=== PATIENT | male | born 1965 | race Caucasian/White ===

== ENCOUNTER 2019-02-08 10:21 | Day surgery (SDC) | payer OTHER ==
--- NOTE | 2019-02-08 10:07 | EKG ---
Test Date: 2019-02-08 Test Time: 10:01:14 Educational Aide: BRI MEASUREMENT RESULTS: Intervals: Rate: 57 MT: 158 QRSD: 100 QT: 454 QTc: 441 [place]: P: 39 MT: 158 QRS: 59 T: 49 INTERPRETIVE STATEMENTS: Sinus bradycardia Otherwise normal ECG No previous ECG available for comparison Electronically Signed On 02-08-19 10:06:55 CDT by Kyle Alcantara
--- NOTE | 2019-02-08 10:25 | RAD REPORT ---
EXAM DESCRIPTION: RAD - Chest Pa And Lat (2 Views) - 02/08/2019 10:20 am CLINICAL HISTORY: preop Chest pain. COMPARISON: No comparisons FINDINGS: The lungs are clear. The heart is normal in size. No displaced fractures. IMPRESSION: No acute or concerning finding suspected.
--- OUTSIDE RECORDS SUMMARY | 2019-02-08 10:28 | XMS REPORT | Summary of Care ---
:1965 Author Organization [facility] Address [address] [place] [id number] Care Team Providers Name Role Phone Mairanela Blanco Primary Care Provider Reason for Visit Radiology Services (Routine) Status Reason Specialty Diagnoses / Referred By Referred To Procedures Contact Contact Closed Diagnostic Diagnoses Abdominal pain, right upper quadrant Gonzalo Koch, Radiology Procedures NM HEPATOBILIARY W INTERVENTION [address] [place] [facility] [address] [place] [address] Encounter Details Date Type Department Care Team Description 02/01/2019 Hospital Encounter [facility] Gonzalo Smith, Birgit Basilio Nuclear Medicine [address] [place] [address] [place] [address] [facility] [address] [place] [address] Allergies Active Allergy Reactions Severity Noted Date Comments Iodine And Iodide Containing Hives, Shortness of Breath 02/01/2019 Products documented as of this encounter (statuses as of 02/02/2019) Medications Not on filedocumented as of this encounter (statuses as of 02/02/2019) Active Problems Not on filedocumented as of this encounter (statuses as of 02/02/2019) Social History Tobacco Use Types Packs/Day Years Used Date Never Assessed Sex Assigned at Date Recorded Not on file Job Start Date Occupation Industry Not on file Not on file Not on file Travel History Travel Start Travel End No recent travel history available. documented as of this encounter Last Filed Vital Signs Not on filedocumented in this encounter Plan of Treatment Health Maintenance Due Date Last Done Comments DTaP,Tdap,and Td Vaccines (1 - 1985 Tdap) COLONOSCOPY 2016 Zoster Recombinant Vaccine 2016 (SHINGRIX) (1 of 2) INFLUENZA VACCINE (#1) 2019 PNEUMOCOCCAL 0-64 YEARS COMBINED Aged Out No longer eligible based on SERIES patient's age to complete this topic documented as of this encounter Procedures Procedure Name Priority Date/Time Associated Comments Diagnosis NM HEPATOBILIARY W Routine 02/01/2019 10:38 Abdominal pain, Results for this INTERVENTION AM CDT right upper procedure are in quadrant the results section. AGREEMENTS Routine 02/01/2019 12:01 AUTHORIZATIONS AND AM CDT IRREVOCABLE ASSIGNMENTS (FORM 2001) NOTICE OF PRIVACY Routine 02/01/2019 12:01 PRACTICES AM CDT documented in this encounter Results Not on filedocumented in this encounter Insurance Payer Benefit Plan / Subscriber ID Effective Dates Phone Address Type Group MEDICARE MEDICARE PART xxxxxxxxxxx 2006-Elo [phone] [facility] Medicare A & B t 2 [id number] SWAPNA PEGUERO [id number] documented as of this encounter
--- OUTSIDE RECORDS SUMMARY | 2019-02-08 10:29 | XMS REPORT | Summary of Care ---
:1965 Author Organization [facility] Address [address] [place] [address] Care Team Providers Name Role Phone Marianela Blanco Primary Care Provider Reason for Referral Radiology Services (Routine) Status Reason Specialty Diagnoses / Referred By Referred To Procedures Contact Contact Closed Diagnostic Diagnoses Abdominal pain, right upper quadrant Gonzalo Koch, Radiology Procedures NM HEPATOBILIARY Sammi GOMEZ MD [address] [place] [address] Radiology Services (Routine) Status Reason Specialty Diagnoses / Referred By Referred To Procedures Contact Contact Closed Diagnostic Diagnoses Abdominal pain, right upper quadrant Gonzalo Koch, Radiology Procedures NM HEPATOBILIARY Sammi GOMEZ MD [address] [place] [address] Reason for Visit Radiology Services (Routine) Status Reason Specialty Diagnoses / Referred By Referred To Procedures Contact Contact Closed Diagnostic Diagnoses Abdominal pain, right upper quadrant Gonzalo Koch, Radiology Procedures NM HEPATOBILIARY Sammi GOMEZ MD [address] [place] [address] Encounter Details Date Type Department Care Team Description 02/01/2019 Hospital Encounter [facility] Gonzalo Smith Arrived [place] [facility] [address] [facility] [address] [place] [address] [facility] [address] [place] [address] Allergies Not on filedocumented as of this encounter [...] procedure are in quadrant the results section. documented in this encounter Results NM HEPATOBILIARY W INTERVENTION (02/01/2019 10:38 AM CDT) Specimen Narrative Performed At HISTORY: Abdominal/right upper quadrant pain. PACS/VR/DOSE TECHNIQUE: Routine hepatobiliary scan is obtained with 9.6 mCi of technetium 99m mebrofenin. CCK study is completed with slow intravenous injection of 1.7 mcg of CCK. FINDINGS: Flow images and planar images of the liver appear normal. Bile ducts begin to visualize within 10 minutes, duodenum within 80 minutes. Gallbladder begins to visualize at approximately 12 minutes. Gallbladder contraction is normal with CCK stimulation and GB EF is 88 %. Patient complained of duplication of clinical symptoms during CCK study. CONCLUSIONS: 1.Delayed biliary to bowel transit time noted with duodenum not visualized until 8 to 10 minutes into the CCK drip infusion. 2.GBEF with CCK stimulation is hyper contraction, 88%. 3.Patient indicated duplication of clinical symptoms during CCK infusion and C/O nausea, right upper quadrant pain. Procedure Note [facility], Radiant Results Inft User - 02/01/2019 11:02 AM CDT HISTORY: Abdominal/right upper quadrant pain. TECHNIQUE: Routine hepatobiliary scan is obtained with 9.6 mCi of technetium 99m mebrofenin. CCK study is completed with slow intravenous injection of 1.7 mcg of CCK. FINDINGS: Flow images and planar images of the liver appear normal. Bile ducts begin to visualize within 10 minutes, duodenum within 80 minutes. Gallbladder begins to visualize at approximately 12 minutes. Gallbladder contraction is normal with CCK stimulation and GB EF is 88 %. Patient complained of duplication of clinical symptoms during CCK study. CONCLUSIONS: 1.Delayed biliary to bowel transit time noted with duodenum not visualized until 8 to 10 minutes into the CCK drip infusion. 2.GBEF with CCK stimulation is hyper contraction, 88%. 3.Patient indicated duplication of clinical symptoms during CCK infusion and C/O nausea, right upper quadrant pain. Performing Organization Address City[facility]State[facility] Phone Number PACS/VR/DOSE documented in this encounter Visit Diagnoses Diagnosis Abdominal pain, right upper quadrant documented in this encounter Administered Medications Medication Order MAR Action Action Date Dose Rate Site tc 99m-mebrofenin Given 02/01/2019 8:49 AM 9.6 millicuries injection 9.6 millicurie CDT 9.6 millicurie, Intravenous, ONCE, 1 dose, Wed02/01/19 at 0915, Routine documented in this encounter Insurance Payer Benefit Plan / Subscriber ID Effective Dates Phone Address Type Group MEDICARE MEDICARE PART xxxxxxxxxxx 2006-Elo [phone] [facility] Medicare A & B t 2 [id number] SWAP[place] PEGUERO [id number] documented as of this encounter
--- OUTSIDE RECORDS SUMMARY | 2019-02-08 10:29 | XMS REPORT ---
:1965 [facility] Address [address] [place] [address] Care Team Providers Name Role Phone Unavailable Unavailable Unavailable Problems This patient has no known problems. Allergies, Adverse Reactions, Alerts This patient has no known allergies or adverse reactions. Medications This patient has no known medications.
[2019-02-08] MEDS ORDERED: NA CHLORIDE 0.9% 1,000 ML ONE ×2 (10:39→12:20)
[2019-02-08 10:43] LABS: Absolute Lymphocytes (CBC) 1.3 K/uL (0.7-4.9); Basophils % 0.4 % (0-1.3); Hematocrit 44.5 % (39.6-49.0)
[2019-02-08] MEDS ORDERED: PROPOFOL 200 MG/20 ML VIAL IV ONE (10:59)
[2019-02-08] MEDS ORDERED: FENTANYL CITR 100 MCG/2 ML ONE (10:59)
[2019-02-08] MEDS ORDERED: MIDAZOLAM HCL 2 MG/2 ML INJ ONE (11:00)
[2019-02-08] MEDS ORDERED: ROCURONIUM 50 MG/5 ML VIAL IV ONE (11:00)
[2019-02-08] MEDS ORDERED: LIDOCAINE 1% MPF 5 ML VIAL ONE (11:00)
[2019-02-08 11:02] LABS: Albumin 4.1 g/dL (3.4-5.0); Bilirubin Direct 0.1 mg/dL (0-0.2); Bilirubin Total 0.7 mg/dL (0.2-1.0); Potassium 4.5 mmol/L (3.5-5.1); Protein, Total 7.5 g/dL (6.4-8.2)
[2019-02-08] MEDS ORDERED: CEFOXITIN/SWI 1gm 1 GM/10 ML SYR ONE (11:29)
--- NOTE | 2019-02-08 11:56 | P.BOP ---
Preoperative diagnosis: RUQ abd pain, biliary dyskinesia Postoperative diagnosis: same plus acute cholecystitis Primary procedure: Laparoscopic cholecystectomy Estimated blood loss: <10cc Specimen: gb Findings: as above Anesthesia: General Complications: None Transferred to: Recovery Room Condition: Good
[2019-02-08] MEDS ORDERED: GLYCOPYRROLATE 0.2 MG/ML SYR ONE ×2 (12:11→12:18)
[2019-02-08] MEDS ORDERED: ONDANSETRON 4 MG/2 ML VIAL ONE ×2 (12:12→15:11)
[2019-02-08] MEDS ORDERED: KETOROLAC 30 MG/ML INJ ONE (12:12)
[2019-02-08] MEDS ORDERED: NEOSTIGMINE 1 MG/ML -10 ML VIAL ONE (12:12)
[2019-02-08] MEDS ORDERED: MEPERIDINE HCL 25 MG/0.5 ML ONE (12:31)
[2019-02-08] MEDS: HYDROMORPHONE HCL 1 MG/ML INJ ONE ×4 (12:35→13:15)
[2019-02-08] MEDS ORDERED: CODEINE 30MG/APAP 300MG TAB ONE (14:04)
--- NOTE | 2019-02-09 00:21 | DS ---
Date of Discharge: 02/08/2019 Diagnoses: Right upper quadrant abdominal pain, acute cholecystitis, biliary dyskinesia, Procedure: Laparoscopic cholecystectomy. Disposition: Home. Activity: As tolerated. No heavy lifting. Followup: Follow up in my office in 1 week. Call for appointment at [phone]. Keep area dry for 48 hours, then may shower. Keep Steri-Strips intact. Medications: See orders. SAMM/KAR Voice ID: [id number] Report ID: [id number]
--- NOTE | 2019-02-09 00:21 | OP ---
Date of Procedure: 02/08/2019 Surgeon: Gonzalo Koch MD Preoperative Diagnosis: Right upper quadrant intractable abdominal pain, recurrent biliary dyskinesi a. Postoperative Diagnosis: Right upper quadrant intractable abdominal pain, recurrent biliary dyskines ia, acute cholecystitis. Procedure: Laparoscopic cholecystectomy. Estimated Blood Loss: Less than 10 cc. Anesthesia: General plus local. Findings: Acute cholecystitis and above diagnosis. Indications: This is the case of a 53-year-old patient, comes to us with on and off epigastric right upper quadrant pain radiating to the back, still with nausea, vomiting, mainly postprandial. Patien t has extensive workup and found to have HIDA scan with duplication of symptoms and CCK injection. D iagnosed with biliary dyskinesia. Benefits, alternatives, and risks of laparoscopic, possible open, cholecystectomy were fully explained to the patient, which include but are not limited to, infection, bleeding, damage to adjacent structures, anesthesia complication, choledocholithiasis, bile leak, pa ncreatitis, [place], and even . He also understands this may not relieve his symptoms. He might nee d more than one surgical intervention. He understood, signed a consent. Description Of Procedure: Patient was brought to the operating room, placed in supine position. Ane sthesia was done without complication. Abdominal area was prepped and draped in a usual sterile fash ion. Marcaine 0.5% was injected for local anesthetic, followed by sharp incision of the skin in the infraumbilical region. Incision was carried down to fascia, which was opened under direct vision. P eritoneum was encountered, opened under direct vision. Vicryl #1 was placed inside the fascia. Lewis on trocar was carefully introduced. No bleeding was obtained. I placed 3 more trocars, 5 mm each on e of them, in the epigastric right upper quadrant area under direct visualization. This allowed me t o put a grasper in the fundus of the gallbladder, another grasper in the infundibulum, retracting the gallbladder in the inferolateral fashion exposing the triangle of Calot and obtaining critical view of safety. Cystic duct and cystic artery were clearly identified circumferentially in a connection b etween those and the gallbladder was clearly identified. I proceeded to ligate those by using at pito st 3 clips proximal, 1 clip distal, ligation in the middle. Same was done with cystic artery. No bi le leak. No bleeding. The gallbladder was removed from the liver using Bovie cauterizer and removed from abdominal cavity using an EndoCatch through the umbilical incision. The area was inspected onc e again. Gallbladder fossa was intact with no bleeding. Clips were intact after irrigation and suct ion with no bile leak and no bleeding. At that moment, I proceeded to remove the trocars in direct v ision, deflated the pneumoperitoneum, closed the fascia with #1 Vicryl, irrigated the subcutaneous ti ssue closed that with 3-0 chromic and the skin in subcuticular fashion with 3-0 chromic and Steri-Str ips on top. Sponge count and instrument count were correct. Patient tolerated the procedure well. Patient was sent to Recovery in stable condition. SAMM/KAR Voice ID: [id number] Report ID: [id number]
== END 2019-02-08 15:30 | disposition home or self-care (01) ==
LOC: OR 10:21
PROVIDERS: ATTEND Surgery
PROC: 0FT44ZZ Resection of Gallbladder, Percutaneous Endoscopic Approach (ICD-10-PCS; principal; 2019-02-08 13:15)
DX: K81.2 Acute cholecystitis with chronic cholecystitis (principal); K82.8 Other specified diseases of gallbladder; E11.9 Type 2 diabetes mellitus without complications; I10 Essential (primary) hypertension; F32.9 Major depressive disorder, single episode, unspecified; Z91.041 Radiographic dye allergy status; Z83.3 Family history of diabetes mellitus; Z82.49 Family history of ischemic heart disease and other diseases of the circulatory system
CPT/HCPCS: 93005; 85025; 80048; 36415; 82150; 82962 ×2; 80076; 88304; 83690; 71046; 47562; J2704; J2710; J2250; J3010; J2175; J1170 ×2; J7030 ×2; J2405 ×2

== ENCOUNTER 2020-01-03 07:21 | Emergency (ER) | payer OTHER ==
--- OUTSIDE RECORDS SUMMARY | 2020-01-03 07:55 | XMS REPORT | Continuity of Care Document ---
:1965 Author Organization [facility] Care Team Providers Name Role Phone [facility] Unavailable Un available Problems Problem Status Onset Classification Date Comments Sourc e Date Reported Hip pain (finding) Active Problem 11/04/2019 [facility] Hypertensive Active Problem 11/04/2019 M[facility] r disorder, systemic N euro arterial (disorder) Hyperlipidemia Active Problem 11/04/2019 Misc her (disorder) Neuro Lumbar Active Problem 11/04/2019 [facility] radiculopathy Neuro (disorder) Prediabetes Active Problem 11/04/2019 [facility] (finding) Neuro Medications Medication Details Route Status Patient Ordering Order Source Instructions Provider Date gabapentin 300 300 mg = 1 Active Mische r MG Oral Capsule cap, PO, 020 Neuro BID, # 60 cap, 3 Refill(s), Pharmacy: [facility] 482 metFORMIN 500 500 mg = 1 Active [facility]ischer mg oral tablet, tab, PO, 020 Neuro extended Daily, 0 release Refill(s) lisinopril 10 10 mg = 1 Active [facility]ischer mg oral tablet tab, PO, 020 Neuro Daily, 0 Refill(s) atorvastatin 10 10 mg = 1 Active Mische r mg oral tablet tab, PO, 020 Neuro Daily, 0 Refill(s) DULoxetine 20 20 mg = 1 Active Mischer mg oral delayed cap, PO, 020 Neuro release capsule Daily, # 30 cap, 0 Refill(s) meclizine 25 mg 25 mg = 1 Active Mische r oral tablet tab, PO, 020 Neuro TID, 0 Refill(s) QUEtiapine 25 25 mg = 1 Active Mischer mg oral tablet tab, PO, 020 Neuro TID, 0 Refill(s) Allergies, Adverse Reactions, Alerts Substance Category Reaction Severity Reaction Status Date Comments S ource type Reported iodine Assertion Drug Active Mische r allergy Neuro Immunizations No Data Provided for This Section Results No Data Provided for This Section Pathology Reports No Data Provided for This Section Diagnostic Reports No Data Provided for This Section Consultation Notes No Data Provided for This Section Discharge Summaries No Data Provided for This Section History and Physicals No Data Provided for This Section Vital Signs Vital Sign Value Date Comments Source Systolic (mm Hg) 129 11/01/2019 [facility] ro Diastolic (mm Hg) 76 11/01/2019 [facility] u[facility] Heart Rate 62 11/01/2019 [facility] Respitory Rate 16 11/01/2019 [facility] Height 170.18 cm 11/01/2019 [facility] Weight 85 11/01/2019 [facility] BMI Calculated 29.35 11/01/2019 [facility] Systolic (mm Hg) 122 08/15/2019 [facility] Evan ro Diastolic (mm Hg) 81 08/15/2019 [facility] Heart Rate 67 [facility] Respitory Rate 16 08/15/2019 [facility] Height 172.72 cm 08/15/2019 [facility] Weight 85.455 08/15/2019 [facility] BMI Calculated 28.65 08/15/2019 [facility] Encounters Location Location Encounter Encounter Reason Attending ADM [place] Stat us Source Details Type Number For Provider Date Date Visit Outpatient [id number] Frank [facility]14 [facility] [id number] Frank 08/14 08/15 [facility] /2019 [facility] [place] Out[facility] [id number] Frank 10/31 [facility] [place] [facility] [id number] Frank 10/31 11/01 [facility] /2019 [facility] [place] Outpatient [id number] Frank 12/27 Active [facility] /2020 Mikel Procedures No Data Provided for This Section Assessment and Plan No Data Provided for This Section Plan of Care No Data Provided for This Section Social History Social History Date Source Social History TypeResponse 08/15/2019 [facility] Employment/School Status: Disabled. Smoking Status Never smoker; Exposure to Tobacco Smoke None; Cigarette Smoking Last 365 Days No; Reg Smoking Cessation Counseling No entered on: 11/01/19 Family History No Data Provided for This Section Advance Directives No Data Provided for This Section Functional Status No Data Provided for This Section
--- OUTSIDE RECORDS SUMMARY | 2020-01-03 07:56 | XMS REPORT | Continuity of Care Document ---
:1965 Author Organization [facility] t Address [address] [place] [address] Care Team Providers Name Role Phone Charan Glen Attending Clinician August LANDIN Attending Clinician Problems Condition Condition Condition Status Onset Resolution Last Treating Co mments Source Name Details Category Date Date Treatment Clinician Date Hip pain Problem Active 2019-11-04 Mem [facility]ria (finding) 00:33:50 l Hip pain Yohan n (finding) Active Problem 11/04/2019 [facility] Hypertensi Problem Active 2019-11-04 M emoria ve 00:33:50 l disorder, [place] systemic Hypertensi arterial ve (disorder) disorder, systemic arterial (disorder) Active Problem 11/04/2019 [facility] Hyperlipid Problem Active 2019-11-04 M emoria emia 00:33:50 l (disorder) Yohan n Hyperlipid emia (disorder) Active Problem 11/04/2019 [facility] Lumbar Problem Active 2019-11-04 Memor ia radiculopa 00:33:50 l thy Lumbar [place] (disorder) radiculopa thy (disorder) Active Problem 11/04/2019 [facility] Prediabete Problem Active 2019-11-04 M emoria s 00:33:50 l (finding) [place] Prediabete s (finding) Active Problem 11/04/2019 [facility] Allergies, Adverse Reactions, Alerts Allergy Allergy Status Severity Reaction(s) Onset Inactive Treating Comm ents Source Name Type Date Date Clinician iodine iodine Active Memoria l Mikel Social History Social Habit Start Date Stop Date Quantity Comments Source Social History 2019-08-15 2019-08-15 [facility] ermann 15:24:17 15:24:17 Medications Ordered Filled Start Stop Current Ordering Indication Dosage Frequency Signature Comments Components Source Medication Medication Date Date Medication? Clinician (SIG) Name Name gabapentin 2020-0 Yes 300 mg = 1 M emoria 300 MG Oral 5-27 cap, PO, l Capsule 19:51: BID, # 60 Robyn nn 00 cap, 3 Refill(s), Pharmacy: [facility] 482 metFORMIN 2020-0 Yes 500 mg = 1 Me moria 500 mg oral 3-10 tab, PO, l tablet, 15:16: Daily, 0 Yohan n extended 00 Refill(s) release lisinopril 2020-0 Yes 10 mg = 1 Me moria 10 mg oral 3-10 tab, PO, l tablet 15:16: Daily, 0 [place] 00 Refill(s) atorvastati 2020- Yes 10 mg = 1 M emoria n 10 mg 3-10 tab, PO, l oral tablet 15:16: Daily, 0 He rmann 00 Refill(s) DULoxetine 2020-0 Yes 20 mg = 1 Me moria 20 mg oral 3-10 cap, PO, l delayed 15:16: Daily, # Yohan n release 00 30 cap, 0 capsule Refill(s) meclizine 2020-0 Yes 25 mg = 1 Mem oria 25 mg oral 3-10 tab, PO, l tablet 15:16: TID, 0 Mikel 00 Refill(s) QUEtiapine 2020-0 Yes 25 mg = 1 Me moria 25 mg oral 3-10 tab, PO, l tablet 15:16: TID, 0 Mikel 00 Refill(s) Vital Signs Vital Name Observation Time Observation Value Comments Source Systolic (mm Hg) 2019-11-01 18:26:00 Asaf riayarely Morin Diastolic (mm Hg) 2019-11-01 18:26:00 Luther melgaral Mikel Heart Rate 2019-11-01 18:26:00 [facility] Respitory Rate 2019-11-01 18:26:00 Juju Bradshaw Height 2019-11-01 18:26:00 [facility] 2019-11-01 18:26:00 [facility] BMI Calculated 2019-11-01 18:26:00 Juju dubon [place] Systolic (mm Hg) 2019-08-15 15:07:00 Asaf castellanos Mikel Diastolic (mm Hg) 2019-08-15 15:07:00 Luther orial [place] Heart Rate 2019-08-15 15:07:00 Hannah [place] Respitory Rate 2019-08-15 15:07:00 Juju al Mikel Height 2019-08-15 15:07:00 172.72 cm Hannah [facility] Weight 2019-08-15 15:07:00 [facility] [place] BMI Calculated 2019-08-15 15:07:00 Memtalia al Mikel Procedures This patient has no known procedures. Encounters Start End Encounter Admission Attending Care Care Encounter Source Date/Time Date/Time Type Type Clinicians Facility Department ID 2019-11-01 2019-11-01 Outpatient FER Farrar [id number] 13:30:00 23:59:59 Frank 01 [facility] 2019-08-15 2019-08-15 Outpatient FER Farrar [id number] 10:00:00 23:59:59 Frank 00 [facility] 2019-02-01 2019-02-[id number] 08:12:27 23:59:00 Encounter Gonzalo [place] [id number] [place] [id number] [place] [id number] 2019-02-01 2019-02-[id number] 08:12:00 08:12:00 Encounter Gonzalo [place] [id number] [place] [id number] [place] [id number] Results This patient has no known results.
--- OUTSIDE RECORDS SUMMARY | 2020-01-03 07:56 | XMS REPORT | Summary of Care ---
:1965 Author Organization [facility] Address [address] [place] [address]- Encounter HQ Moshe_tracey(FIN) [id number] Date(s): 11/01/19 - 11/01/19 [facility] [address] [place] [address]- [phone] Discharge Disposition: Home or Self Care Attending Physician: Frank Farrar MD Vital Signs Most recent to oldest [Reference Range]: 1 Height 170.18 cm (11/01/19 1:26 PM) Blood Pressure [90-140/60-90 mmHg] 129/76 mmHg (11/01/19 1:26 PM) Respiratory Rate [14-20 BRMIN] 16 BRMIN (11/01/19 1:26 PM) Peripheral Pulse Rate [60-100 bpm] 62 bpm (11/01/19 1:26 PM) Weight 85 kg (11/01/19 1:26 PM) Body Mass Index 29.35 m2 (11/01/19 1:26 PM) Problem List Condition Effective Dates Status Health Status Informant Left hip pain(Confirmed) Active HTN - Hypertension(Confirmed) Active Hyperlipidemia(Confirmed) Active Lumbar radiculopathy(Confirmed) Active Prediabetes(Confirmed) Active Allergies, Adverse Reactions, Alerts Substance Reaction Severity Status iodine Active Medications gabapentin 300 mg oral capsule 300 mg = 1 cap, PO, BID, # 60 cap, 3 Refill(s), Pharmacy: [facility] Start Date: 11/01/19 Stop Date: 02/29/20 Status: Ordered Results No data available for this section Immunizations No data available for this section Procedures No data available for this section Social History Social History Type Response Employment/School Status: Disabled. Smoking Status Never smoker; Exposure to To bacco Smoke None; Cigarette Smoking Last 365 Days No; Reg Smoking Cessation Counseling No entered on: 11/01/19 Assessment and Plan No data available for this section
[2020-01-03] MEDS ORDERED: NA CHLORIDE 0.9% 1,000 ML ONE (08:17)
[2020-01-03] MEDS ORDERED: NITROGLYCERIN 0.4 MG/TAB SL ONE (08:17)
[2020-01-03] MEDS ORDERED: ASPIRIN 81 MG CHEWABLE TABLET ONE (08:17)
--- NOTE | 2020-01-03 08:26 | RAD REPORT ---
EXAM DESCRIPTION: RAD - Chest Single View - 01/03/2020 7:58 am CLINICAL HISTORY: CHEST PAIN Chest pain. COMPARISON: Chest Pa And Lat (2 Views) dated 02/08/2019 FINDINGS: Portable technique limits examination quality. The lungs are grossly clear. The heart is normal in size. No displaced fractures. IMPRESSION: No acute intrathoracic process suspected.
[2020-01-03 08:35] LABS: Absolute Lymphocytes (CBC) 1.2 K/uL (0.7-4.9); Hematocrit 41.6 % (39.6-49.0); MPV 7.8 fL (7.6-11.3)
[2020-01-03 08:41] LABS: Protime INR 1.07
[2020-01-03 08:56] LABS: ALT/SGPT 17 U/L (12-78); AST/SGOT 12 U/L (15-37); Albumin 3.6 g/dL (3.4-5.0); Alkaline Phosphatase 117 U/L (45-117); BUN Blood Urea Nitrogen 8 mg/dL (7-18); Bicarbonate 26 mmol/L (21-32); Bilirubin Direct 0.2 mg/dL (0-0.2); Bilirubin Total 0.8 mg/dL (0.2-1.0); Glucose Level 114 mg/dL (74-106); Magnesium 2.2 mg/dL (1.8-2.4); NT PRO-BNP 44 pg/mL (<125); Potassium 4.1 mmol/L (3.5-5.1); Protein, Total 6.9 g/dL (6.4-8.2); Sodium Level 140 mmol/L (136-145); Troponin (Emerg Dept Use Only) < 0.02 ng/mL (0.0-0.045)
--- NOTE | 2020-01-03 09:13 | ER ---
Nurse's Notes [facility] Name: Neymar Shah Age: 54 yrs Sex: Male : 1965 Arrival Date: 01/03/2020 Time: 07:23 Bed 18 Private MD: Diagnosis: Angina pectoris, unspecified Presentation: 01/02 07:33 Chief complaint: Patient states: yesterday stared having left sided chest pain and iw numbness down left arm, pain is described as intermittent pinching sensation, numbness extends into his fingertips. Coronavirus screen: Patient denies a cough. Patient denies shortness of breath or difficulty breathing. Patient denies measured and/or subjective temperature greater than 100.4F prior to today's visit. Patient denies travel on a cruise ship or to a country the [facility] currently lists as an affected area. Patient denies contact with known and/or suspected case of COVID-19. Ebola Screen: Patient negative for fever greater than or equal to 101.5 degrees Fahrenheit, and additional compatible Ebola Virus Disease symptoms Patient denies exposure to infectious person. Patient denies travel to an Ebola-affected area in the 21 days before illness onset. No symptoms or risks identified at this time. Initial Sepsis Screen: Does the patient meet any 2 criteria? No. Patient's initial sepsis screen is negative. Does the patient have a suspected source of infection? No. Patient's initial sepsis screen is negative. Risk Assessment: Do you want to hurt yourself or someone else? Patient reports no desire to harm self or others. Onset of symptoms was January 02, 2020. 07:33 Method Of Arrival: Ambulatory iw 07:33 Acuity: BOBBI 3 iw Triage Assessment: 07:45 General: Appears in no apparent distress. comfortable, Behavior is cooperative, bp appropriate for age, anxious. Pain: Complains of pain in chest. EENT: No deficits noted. Neuro: No deficits noted. Cardiovascular: Reports chest pain. Respiratory: No deficits noted. GI: No signs and/or symptoms were reported involving the gastrointestinal system. : No signs and/or symptoms were reported regarding the genitourinary system. Derm: No deficits noted. Musculoskeletal: No deficits noted. Historical: - Allergies: 07:36 Iodinated Contrast Media - IV Dye; iw - Home Meds: 07:36 lisinopril 10 mg Oral tab 1 tab once daily [Active]; metformin 500 mg Oral tr24 twice a iw day [Active]; - PMHx: 07:43 Hypertension; Diabetes - NIDDM; iw - PSHx: 07:43 Cholecystectomy; left leg; iw - Immunization history:: Adult Immunizations up to date. - Social history:: Smoking status: Patient denies any tobacco usage or history of. Screenin:54 Abuse screen: Denies threats or abuse. Denies injuries from another. Nutritional bp screening: No deficits noted. Tuberculosis screening: No symptoms or risk factors identified. Fall Risk None identified. Assessment: 07:45 General: SEE TRIAGE NOTE. bp 08:45 Reassessment: ALL CURRENT ORDERS COMPLETED, RESULTS UNREMARKABLE. PT STATES S/S FREE AT bp THIS TIME. 10:08 Reassessment: PT DECLINE ADMIT, SIGNED OUT AMA. PT URGED TO REMAIN BUT REFUSED. PT bp COUNSELED TO RETURN IF S/S WORSEN OR RETURN. Vital Signs: 07:33 BP 146 / 88; Pulse 59; Resp 16; Temp 98.0; Pulse Ox 100% on R/A; Weight 84.82 kg; iw Height 5 ft. 8 in. (172.72 cm); Pain 7/10; 08:45 BP 130 / 81; Pulse 56; Resp 16; Pulse Ox 99% ; bp 10:08 BP 102 / 85; Pulse 58; Resp 16; Temp 98; Pulse Ox 97% ; bp 07:33 Body Mass Index 28.43 (84.82 kg, 172.72 cm) iw ED Course: 07:23 Patient arrived in ED. ag5 07:30 Kaden Hayes, TRACY is Primary Nurse. bp 07:33 Curry Garay PA is PHCP. cp 07:33 Avila Hunter MD is Attending Physician. cp 07:35 Triage completed. iw 07:43 Arm band placed on. iw 07:58 XRAY Chest (1 view) In Process Unspecified. EDMS 08:20 Inserted saline lock: 20 gauge in right forearm, using aseptic technique. Blood bp collected. 08:54 Patient has correct armband on for positive identification. Bed in low position. Call bp light in reach. Side rails up X2. monitoring tech on. Pulse ox on. NIBP on. 09:11 Hardy Hines MD is Referral Physician. cp 10:09 No provider procedures requiring assistance completed. IV discontinued, intact, bp bleeding controlled, No redness/swelling at site. Pressure dressing applied. Patient maintains SpO2 saturation greater than 95% on room air. Administered Medications: 08:20 Drug: Aspirin Chewable Tablet 324 mg Route: PO; bp 08:56 Follow up: Response: No adverse reaction bp 08:20 Drug: Nitroglycerin 0.4 mg Route: Sublingual; bp 08:55 Follow up: Response: Pain is decreased bp 08:20 Drug: NS 0.9% 1000 ml Route: IV; Rate: 1 bolus; Site: right forearm; bp 10:10 Follow up: IV Status: Completed infusion; IV Intake: 1000ml bp Intake: 10:10 IV: 1000ml; Total: 1000ml. bp Outcome: 10:09 AMA AMA form signed bp 10:09 Condition: stable 10:09 Discharge instructions given to patient, Instructed on discharge instructions, follow up and referral plans. Demonstrated understanding of instructions, follow-up care. 10:10 Patient left the ED. bp Signatures: Dispatcher [employer] EDRosie Posada, RN RN Curry Villar, SWAPNA PA Kaden Solomon, RN RN Koko Hauser ag5
--- NOTE | 2020-01-03 09:13 | EDPHYS ---
Physician Documentation [facility] Name: Neymar Shah Age: 54 yrs Sex: Male : 1965 Arrival Date: 01/03/2020 Time: 07:23 Bed 18 Private MD: ED Physician Avila Hunter HPI: 01/02 07:43 This 54 yrs old Male presents to ER via Ambulatory with complaints of Chest cp Pain, Numbness Of Arm. 07:45 The patient or guardian reports chest pain that is located primarily in the anterior cp chest wall, left. 07:45 Onset: yesterday. cp 07:45 The pain radiates to the left arm, left back. cp 07:45 Associated signs and symptoms: Pertinent positives: numbness of left arm, Pertinent cp negatives: abdominal pain, cough, diaphoresis, lower extremity pain, lower extremity swelling, palpitations, shortness of breath, syncope. 07:45 The chest pain is described as pinching. cp 07:45 Duration: The patient or guardian reports multiple episodes, that wax and wane. cp Modifying factors: The symptoms are alleviated by nothing. the symptoms are aggravated by nothing. Historical: - Allergies: 07:36 Iodinated Contrast Media - IV Dye; iw - Home Meds: 07:36 lisinopril 10 mg Oral tab 1 tab once daily [Active]; metformin 500 mg Oral tr24 twice a iw day [Active]; - PMHx: 07:43 Hypertension; Diabetes - NIDDM; iw - PSHx: 07:43 Cholecystectomy; left leg; iw - Immunization history:: Adult Immunizations up to date. - Social history:: Smoking status: Patient denies any tobacco usage or history of. ROS: 07:50 Constitutional: Negative for body aches, chills, fever, poor PO intake. cp 07:50 Eyes: Negative for injury, pain, redness, and discharge. cp 07:50 Neck: Positive for pain at rest. 07:50 Cardiovascular: Positive for chest pain, Negative for edema, palpitations. 07:50 Respiratory: Negative for cough, shortness of breath, wheezing. 07:50 Abdomen/GI: Negative for abdominal pain, vomiting, diarrhea, constipation. 07:50 Back: Positive for radiated pain. 07:50 MS/extremity: Positive for pain, paresthesias, of the left arm, Negative for decreased range of motion, swelling. 07:50 Neuro: Negative for altered mental status, headache, syncope, weakness. 07:50 All other systems are negative. Exam: 07:55 Constitutional: The patient appears in no acute distress, alert, awake, cp non-diaphoretic, non-toxic, well developed, well nourished. 07:55 Head/Face: Normocephalic, atraumatic. cp 07:55 Eyes: Periorbital structures: appear normal, Conjunctiva: normal, no exudate, no injection, Sclera: no appreciated abnormality, Lids and lashes: appear normal, bilaterally. 07:55 ENT: External ear(s): are unremarkable, Nose: is normal, Mouth: Lips: moist, Oral mucosa: moist, Posterior pharynx: Airway: no evidence of obstruction, patent. 07:55 Neck: ROM/movement: is normal, is supple, no range of motions limitations, no nuchal rigidity. 07:55 Chest/axilla: Inspection: normal, Palpation: is normal, no crepitus, no tenderness. 07:55 Cardiovascular: Rate: bradycardic, Rhythm: regular, Pulses: Pulses are 2+ in right radial artery and left radial artery. Edema: is not appreciated, JVD: is not appreciated. 07:55 Respiratory: the patient does not display signs of respiratory distress, Respirations: normal, no use of accessory muscles, no retractions, labored breathing, is not present. 07:55 Abdomen/GI: Inspection: abdomen appears normal, Bowel sounds: active, all quadrants, Palpation: abdomen is soft and non-tender, in all quadrants. 07:55 Back: pain, that is mild, ROM is normal. 07:55 Neuro: Orientation: to person, place \T\ time. Mentation: is normal, Motor: moves all fours, strength is normal, Sensation: numbness, that is mild, of the left arm. 08:06 ECG was reviewed by the Attending Physician. cp Vital Signs: 07:33 BP 146 / 88; Pulse 59; Resp 16; Temp 98.0; Pulse Ox 100% on R/A; Weight 84.82 kg; iw Height 5 ft. 8 in. (172.72 cm); Pain 7/10; 08:45 BP 130 / 81; Pulse 56; Resp 16; Pulse Ox 99% ; bp 10:08 BP 102 / 85; Pulse 58; Resp 16; Temp 98; Pulse Ox 97% ; bp 07:33 Body Mass Index 28.43 (84.82 kg, 172.72 cm) iw MDM: 07:42 Patient medically screened. cp 09:05 The patient was given aspirin in the Emergency Department. cp 09:05 Data reviewed: vital signs, nurses notes, lab test result(s), EKG, radiologic studies, cp plain films. Test interpretation: by ED physician or midlevel provider: ECG. Response to treatment: the patient's symptoms have markedly improved after treatment. 09:10 Counseling: I had a detailed discussion with the patient and/or guardian regarding: the cp historical points, exam findings, and any diagnostic results supporting the discharge/admit diagnosis, lab results, the need for further work-up and treatment in the hospital. 09:10 Refusal of service: The patient/guardian displays adequate decision making capability cp and despite a detailed discussion of alternatives, benefits, risks, and consequences refuses: Admission to the hospital for further work-up and treatment. 01/02 07:43 Order name: Basic Metabolic Panel; Complete Time: 09:02 cp 01/02 07:43 Order name: CBC with Diff; Complete Time: 08:43 cp 01/02 07:43 Order name: LFT's; Complete Time: 09:02 cp 01/02 07:43 Order name: Magnesium; Complete Time: 09:02 cp 01/02 07:43 Order name: NT PRO-BNP; Complete Time: 09:02 cp 01/02 07:43 Order name: PT-INR; Complete Time: 09:02 cp 01/02 07:43 Order name: Troponin (emerg Dept Use Only); Complete Time: 09:02 cp 01/02 07:43 Order name: XRAY Chest (1 view); Complete Time: 08:43 cp 01/02 07:43 Order name: EKG; Complete Time: 07:44 cp 01/02 07:43 Order name: Cardiac monitoring; Complete Time: 07:54 cp 01/02 07:43 Order name: EKG - Nurse/Tech; Complete Time: 07:55 cp 01/02 07:43 Order name: IV Saline Lock; Complete Time: 08:27 cp 01/02 07:43 Order name: Labs collected and sent; Complete Time: 08:27 cp 01/02 07:43 Order name: O2 Per Protocol; Complete Time: 07:55 cp 01/02 07:43 Order name: O2 Sat Monitoring; Complete Time: 07:55 cp EC:06 Rate is 60 beats/min. Rhythm is regular. MS interval is normal. QRS interval is normal. cp QT interval is normal. T waves are Flattened in lead aVL. Interpreted by me. Reviewed by me. Administered Medications: 08:20 Drug: Aspirin Chewable Tablet 324 mg Route: PO; bp 08:56 Follow up: Response: No adverse reaction bp 08:20 Drug: Nitroglycerin 0.4 mg Route: Sublingual; bp 08:55 Follow up: Response: Pain is decreased bp 08:20 Drug: NS 0.9% 1000 ml Route: IV; Rate: 1 bolus; Site: right forearm; bp 10:10 Follow up: IV Status: Completed infusion; IV Intake: 1000ml bp Disposition: 17:26 Co-signature as Attending Physician, Avila Hunter MD I agree with the assessment and kdr plan of care. Disposition: 01/03/20 09:12 Patient has left against medical advice. Impression: Angina pectoris, unspecified. - Patients states they are going to Home. - Condition is Stable. - Discharge Instructions: Angina Pectoris, Aspirin and Your Heart. Follow up: Hardy Hines MD; When: 1 - 2 days; Reason: Recheck today's complaints. - Problem is new. - Symptoms have improved. Signatures: Dispatcher [employer] EDSD Avila Hunter MD MD [facility] Rosie White RN RN Curry Garay PA PA cp Kaden Hayes, TRACY RN bp Corrections: (The following items were deleted from the chart) 10:10 09:12 01/03/2020 09:12 Patients has left against medical advice. Impression: Angina bp pectoris, unspecified. Patient states they are going to Home. Condition is Stable. Follow up: Hardy Hines; When: 1 - 2 days; Reason: Recheck today's complaints. Problem is new. Symptoms have improved. cp
[2020-01-03 10:18] VITALS: BP 102/85; TEMP 98; O2SAT 97
--- NOTE | 2020-01-04 07:34 | EKG ---
Test Date: 2020-01-03 Test Time: 07:50:14 Perinatal Social Worker: BP MEASUREMENT RESULTS: Intervals: Rate: 60 IL: 156 QRSD: 86 QT: 466 QTc: 466 [place]: P: 46 IL: 156 QRS: 53 T: 52 INTERPRETIVE STATEMENTS: Normal sinus rhythm Normal ECG Compared to ECG 02/08/2019 10:01:14 Sinus bradycardia no longer present Electronically Signed On 01-04-20 07:32:36 CDT by Hardy Hines
== END 2020-01-03 10:10 | disposition left against medical advice (07) ==
LOC: ER 07:21
DX: I20.9 Angina pectoris, unspecified (principal); I10 Essential (primary) hypertension; E11.9 Type 2 diabetes mellitus without complications; Z91.041 Radiographic dye allergy status
CPT/HCPCS: 96361; 93005; 85025; 80048; 36415; 83735; 85610; 80076; 84484; 83880; 71045; 96360; 99285; J7030

== ENCOUNTER 2022-01-23 12:39 | Emergency (ER) | payer OTHER ==
--- OUTSIDE RECORDS SUMMARY | 2022-01-23 12:51 | XMS REPORT | Continuity of Care Document ---
:1965 Author Organization [facility] t Address [address] [place] [address] Care Team Providers Name Role Phone Sinai Taylor MD Primary Care Physician DEYANIRA GARVIN Attending Clinician Unavailable SINAI TAYLOR Attending Clinician Unavailable JOYCE PIERCE Attending Clinician Unavailable Elmira Fitzgerald RN Attending Clinician Unavailable MACO Attending Clinician Unavailable Chago Muñiz RN Attending Clinician Unavailable Dolly Anderson LCSW Attending Clinician Unavailable Ashli Sesay - Claribel Attending Clinician Unava ilable FLYNN Attending Clinician Unavailable Gonzalo Koch MD Attending Clinician MACO Admitting Clinician Unavailable FLYNN Admitting Clinician Unavailable Payers Payer Name Policy Type Policy Number Effective Date Expiration Date S mamta [employer]NA MEDICARE [id number] 2020 ADVANTAGE HMO 00:00:00 MEDICARE B-[place]: [id number] 2006 [employer] 00:00:00 HUMANA (MEDICARE [id number] REPLACEMENT/ADVANT AGE - HMO) Problems Condition Condition Condition Status Onset Resolution Last Treating Co mments Source Name Details Category Date Date Treatment Clinician Date Abdominal Abdominal Disease Active [facility] pain, pain, 11-15 Health right right 00:00: upper upper 00 quadrant quadrant Arthralgia Arthralgia Disease Active [facility] of hip of hip 11-15 Health 00:00: 00 Hyperlipid Hyperlipid Disease Active [facility] emia emia 11-15 Health 00:00: 00 Hypertensi Hypertensi Disease Active [facility] on on 11-15 Health 00:00: 00 Lumbar Lumbar Disease Active [facility] radiculopa radiculopa 11-15 He alth thy thy 00:00: 00 Prediabete Prediabete Disease Active [facility] s s 11-15 Health 00:00: 00 Allergies, Adverse Reactions, Alerts Allergy Allergy Status Severity Reaction(s) Onset Inactive Treating Comm ents Source Name Type Date Date Clinician Iodine Allergy Active [facility] to 11-15 [facility] substanc 00:00: e 00 Social History Social Habit Start Date Stop Date Quantity Comments Source History [facility] Alcohol Comment History [facility] Alcohol Std Drinks History [facility] Alcohol Binge Exposure to Not sure [facility] SARS-CoV-2 (event) Alcohol intake 2020-12-17 2020-12-17 Lifetime [facility] 00:00:00 00:00:00 non-drinker (finding) Tobacco use and 2020-11-15 2020-11-15 Smokeless tobacco [facility] exposure 00:00:00 00:00:00 non-user History SDOH 2020-11-15 2020-11-15 1 [facility] Alcohol Frequency 00:00:00 00:00:00 Education 2020-11-15 2020-11-15 13 [facility] 00:00:00 00:00:00 Sex Ass[birth year] At [birth year] [facility] 00:00:00 00:00:00 Smoking Status Start Date Stop Date Source Unknown if ever smoked [facility] Never smoked tobacco [facility] Medications Ordered Filled Start Stop Current Ordering Indication Dosage Frequency Signature Comments Components Source Medication Medication Date Date Medication? Clinician (SIG) Name Name QUEtiapine Yes [id number] 300mg Take 1 [facility] (SEROquel) 7-15 tablet Health 300 MG 00:00: (300 mg tablet 00 total) by mouth every night. QUEtiapine 2020- No [id number] 300mg Take 1 [facility] (SEROquel) 7-15 08-15 tablet Health 300 MG 00:00: 04:59 (300 mg tablet 00 :00 total) by mouth every night. QUEtiapine 1- No [id number] 300mg Take 1 [facility] (SEROquel) 7-15 08-15 tablet Health 300 MG 00:00: 04:59 (300 mg tablet 00 :00 total) by mouth every night. QUEtiapine 2020-0 2020- No [id number] 300mg Take 1 [facility] (SEROquel) 7-15 08-15 tablet Health 300 MG 00:00: 04:59 (300 mg tablet 00 :00 total) by mouth every night. QUEtiapine 2020-0 2020- No 200mg Take 200 [facility] (SEROquel) 7-13 07-13 mg by Health 200 MG 16:28: 00:00 mouth tablet 28 :00 every night. QUEtiapine 2020-0 2020- No 200mg Take 200 [facility] (SEROquel) 7-13 07-13 mg by Health 200 MG 16:28: 00:00 mouth tablet 28 :00 every night. lisinopril 2020-0 Yes [id number] TAKE 1 U T 10 MG 7-13 TABLET BY Health tablet 00:00: MOUTH ONCE 00 DAILY FOR BLOOD PRESSURE QUEtiapine 2020-0 Yes [id number] 300mg Take 1 [facility] (SEROquel) 7-13 tablet Health 300 MG 00:00: (300 mg tablet 00 total) by mouth every night. lisinopril 2020-0 Yes [id number] TAKE 1 U T 10 MG 7-13 TABLET BY Health tablet 00:00: MOUTH ONCE 00 DAILY FOR BLOOD PRESSURE lisinopril 2020-0 Yes [id number] TAKE 1 U T 10 MG 7-13 TABLET BY Health tablet 00:00: MOUTH ONCE 00 DAILY FOR BLOOD PRESSURE lisinopril 2020-0 Yes [id number] TAKE 1 U T 10 MG 7-13 TABLET BY Health tablet 00:00: MOUTH ONCE 00 DAILY FOR BLOOD PRESSURE lisinopril 1-0 Yes [id number] TAKE 1 U T 10 MG 7-13 TABLET BY Health tablet 00:00: MOUTH ONCE 00 DAILY FOR BLOOD PRESSURE lisinopril 1-0 Yes [id number] TAKE 1 U T 10 MG 7-13 TABLET BY Health tablet 00:00: MOUTH ONCE 00 DAILY FOR BLOOD PRESSURE lisinopril 1-0 Yes [id number] TAKE 1 U T 10 MG 7-13 TABLET BY Health tablet 00:00: MOUTH ONCE 00 DAILY FOR BLOOD PRESSURE QUEtiapine 0 Yes [id number] 300mg Take 1 [facility] (SEROquel) 7-13 tablet Health 300 MG 00:00: (300 mg tablet 00 total) by mouth every night. QUEtiapine 0 2020- No [facility] (SEROquel) 11-19 Health 300 MG 00:00: 00:00 tablet 00 :00 QUEtiapine 2020-0 2020- No [facility] (SEROquel) 11-19 Health 300 MG 00:00: 00:00 tablet 00 :00 QUEtiapine 2020-0 2020- No [facility] (SEROquel) 11-19 Health 300 MG 00:00: 00:00 tablet 00 :00 QUEtiapine 2020-0 2020- No [facility] (SEROquel) 11-19 Health 300 MG 00:00: 00:00 tablet 00 :00 QUEtiapine 0 Yes 200mg Take 200 [facility] (SEROquel) 6-11 mg by Health 200 MG 14:41: mouth tablet 30 every night. QUEtiapine 0 Yes 200mg Take 200 [facility] (SEROquel) 6-11 mg by Health 200 MG 14:41: mouth tablet 30 every night. QUEtiapine 0 Yes 200mg Take 200 [facility] (SEROquel) 6-11 mg by Health 200 MG 14:41: mouth tablet 30 every night. lisinopril 2020-0 Yes [id number] TAKE 1 U T 10 MG 6-11 TABLET BY Health tablet 00:00: MOUTH ONCE 00 DAILY FOR BLOOD PRESSURE lisinopril 2020-0 Yes [id number] TAKE 1 U T 10 MG 6-11 TABLET BY Health tablet 00:00: MOUTH ONCE 00 DAILY FOR BLOOD PRESSURE lisinopril 2020-0 Yes [id number] TAKE 1 U T 10 MG 6-11 TABLET BY Health tablet 00:00: MOUTH ONCE 00 DAILY FOR BLOOD PRESSURE lisinopril 2020-0 2020- No [id number] TAKE 1 [facility] 10 MG 6-11 -13 TABLET BY Health tablet 00:00: 00:00 MOUTH ONCE 00 :00 DAILY FOR BLOOD PRESSURE lisinopril 2020-0 2020- No [id number] TAKE 1 [facility] 10 MG 6-11 -13 TABLET BY Health tablet 00:00: 00:00 MOUTH ONCE 00 :00 DAILY FOR BLOOD PRESSURE lisinopril 2020- No [id number] TAKE 1 [facility] 10 MG 6-04 13- TABLET BY Health tablet 00:00: 00:00 MOUTH ONCE 00 :00 DAILY FOR BLOOD PRESSURE lisinopril 2020- No [id number] TAKE 1 [facility] 10 MG 6-04 13- TABLET BY Health tablet 00:00: 00:00 MOUTH ONCE 00 :00 DAILY FOR BLOOD PRESSURE lisinopril 2019-06- No TAKE 1 UT 10 MG 0-08 - TABLET BY Health tablet 00:00: 00:00 MOUTH ONCE 00 :00 DAILY FOR BLOOD PRESSURE lisinopril 2019-06- No TAKE 1 UT 10 MG 0-08 11-15 TABLET BY Health tablet 00:00: 00:00 MOUTH ONCE 00 :00 DAILY FOR BLOOD PRESSURE No known No [facility] medications [facility] No known No [facility] medications [facility] Immunizations Ordered Immunization Filled Immunization Date Status Commen ts Source Name Name Covid-19 Moderna 2020-12-17 Completed [facility] SARS-CoV-2 Vaccination 00:00:00 Covid-19 Moderna 2020-12-17 Completed [facility] SARS-CoV-2 Vaccination 00:00:00 Covid-19 Moderna 2020-12-17 Completed [facility] SARS-CoV-2 Vaccination 00:00:00 Covid-19 Moderna 2020-12-17 Completed [facility] SARS-CoV-2 Vaccination 00:00:00 Covid-19 Moderna 2020-12-17 Completed [facility] SARS-CoV-2 Vaccination 00:00:00 Covid-19 Moderna 2020-12-17 Completed [facility] SARS-CoV-2 Vaccination 00:00:00 COVID-19 Moderna 18 & 2020-12-17 Completed [facility] Over Vaccination 00:00:00 Covid-19 Moderna 2020-12-17 Completed [facility] SARS-CoV-2 Vaccination 00:00:00 Covid-19 Moderna 2020-12-17 Completed [facility] SARS-CoV-2 Vaccination 00:00:00 Covid-19 Moderna 2020-11-15 Completed [facility] SARS-CoV-2 Vaccination 00:00:00 Covid-19 Moderna 2020-11-15 Completed [facility] SARS-CoV-2 Vaccination 00:00:00 Covid-19 Moderna 2020-11-15 Completed [facility] SARS-CoV-2 Vaccination 00:00:00 Covid-19 Moderna 2020-11-15 Completed [facility] SARS-CoV-2 Vaccination 00:00:00 Covid-19 Moderna 2020-11-15 Completed [facility] SARS-CoV-2 Vaccination 00:00:00 Covid-19 Moderna 2020-11-15 Completed [facility] SARS-CoV-2 Vaccination 00:00:00 Covid-19 Moderna 2020-11-15 Completed [facility] SARS-CoV-2 Vaccination 00:00:00 COVID-19 Moderna 18 & 2020-11-15 Completed [facility] Over Vaccination 00:00:00 Covid-19 Moderna 2020-11-15 Completed [facility] SARS-CoV-2 Vaccination 00:00:00 Covid-19 Moderna 2020-11-15 Completed [facility] SARS-CoV-2 Vaccination 00:00:00 Covid-19 Moderna 2020-11-15 Completed [facility] SARS-CoV-2 Vaccination 00:00:00 Covid-19 Moderna 2020-11-15 Completed [facility] SARS-CoV-2 Vaccination 00:00:00 Covid-19 Moderna 2020-11-15 Completed [facility] SARS-CoV-2 Vaccination 00:00:00 Vital Signs Vital Name Observation Time Observation Value Comments Source Systolic blood pressure 2020-12-17 16:28:00 117 mm[Hg] [facility] Diastolic blood pressure 2020-12-17 16:28:00 74 mm[Hg] [facility] Heart rate 2020-12-17 16:28:00 93 /min [facility] Body temperature 2020-12-17 16:28:00 37 Lucille [facility] Respiratory rate 2020-12-17 16:28:00 18 /min [facility] Body height 2020-12-17 16:28:00 172.7 cm [facility] Body weight 2020-12-17 16:28:00 83.28 kg [facility] BMI 2020-12-17 16:28:00 27.92 kg/m2 [facility] Oxygen saturation in 2020-12-17 16:28:00 100 /min [facility] Arterial blood by Pulse oximetry Systolic blood pressure 2020-11-15 14:55:00 142 mm[Hg] [facility] Diastolic blood pressure 2020-11-15 14:55:00 80 mm[Hg] [facility] Heart rate 2020-11-15 14:55:00 63 /min [facility] Body temperature 2020-11-15 14:55:00 37.06 Lucille [facility] Respiratory rate 2020-11-15 14:55:00 18 /min [facility] Body height 2020-11-15 14:55:00 180.3 cm [facility] Body weight 2020-11-15 14:55:00 82.01 kg [facility] BMI 2020-11-15 14:55:00 25.22 kg/m2 [facility] Oxygen saturation in 2020-11-15 14:55:00 98 /min [facility] Arterial blood by Pulse oximetry Procedures This patient has no known procedures. Encounters Start End Encounter Admission Attending Care Care Encounter Source Date/Time Date/Time Type Type Clinicians Facility Department ID 2020-12-19 Outpatient VIRGIE, [facility] [id number] [place] 17:38:24 [facility] 2020-12-17 Outpatient CLAUDIA, [facility] [id number] [place] 12:18:50 [facility] 2020-12-17 Outpatient [facility] [id number] [place] 12:17:35 [facility] 2020-11-18 Outpatient TEJINDER, [facility] [id number] [place] 09:13:25 [facility] 2020-11-15 Outpatient [facility] [id number] [place] 10:26:51 Health 2020-11-15 Outpatient CLAUDIA, [facility] [id number] [place] 10:26:07 [facility] 2020-11-15 Outpatient VIRGIE [facility] [id number] [place] 10:11:17 [facility] 2021-06-17 2021-06-17 Telephone Elmira Fitzgerald 1.2.840. 114 [id number] [place] 00:00:00 00:00:00 Elmira Fitzgerald [id number] [facility] [id number] [place] [id number] 2021-04-30 2021-04-30 Outpatient HERNAN MOLINA [facility] [address] [place] 04:40:00 04:40:00 N 1124 da [facility] Program 2021-01-10 2021-01-10 Telephone Chago Muñiz 1.2.840.11 [id number] [place] 00:00:00 00:00:00 Chago Muñiz [id number] Health MEDICAL [id number] [place] [id number] 2020-12-27 2020-12-27 Patient Dolly Anderson 1.2.8 40.114 [id number] [place] 00:00:00 00:00:00 Outreach Dolly Anderson 350.1. 13.58 Health [id number] [id number] 2020-12-24 2020-12-24 Patient Dolly Anderson 1.2.8 40.114 [id number] [place] 00:00:00 00:00:00 Outreach Dolly Anderson 350.1. 13.58 Health [id number] [id number] 2020-12-18 2020-12-18 Patient Dolly Anderson 1.2.8 40.114 [id number] [place] 00:00:00 00:00:00 Outreach Dolly Anderson 350.1. 13.58 Health [id number] [id number] 2020-12-17 2020-12-17 Immunizati KIMBERLEE Sesay 1.2.840.114 [id number] [place] 11:29:28 12:19:14 on Ashli SESAY [id number] Health Vaccine - [id number] [facility] [id number] 2020-12-17 2020-12-17 Office KIMBERLEE Taylor 1.2.840.114 [id number] [place] 11:24:13 12:18:54 Visit Sinai SESAY [id number] Health [id number] [id number] 2020-11-15 2020-11-15 Immunizati Melonie UTP 1.2.840.114 [id number] [place] 09:30:17 10:33:14 on Ashli SESAY [id number] Health Vaccine - 9.2.7.2.686 Moderna [id number] 2020-11-15 2020-11-15 Office Claudia KIMBERLEE 1.2.840.114 [id number] [place] 08:49:58 10:26:50 Visit Sinai SESAY [id number] Health [id number] [id number] 2020-11-15 2020-11-15 Telephone Tejinder KIMBERLEE 1.2.840.114 [id number] [place] 00:00:00 00:00:00 Joyce WICK [id number] He alth [id number] [id number] 2020-11-13 2020-11-13 Patient Dolly Anderson 1.2.8 40.114 [id number] [place] 00:00:00 00:00:00 Outreach Dolly Anderson 350.1. 13.58 Health [id number] [id number] 2020-10-06 2020-10-06 Outpatient SISSON_C [facility] [id number] [place] 01:02:00 01:02:00 [facility] 2020-10-06 2020-10-06 Outpatient SISSON_C [facility] [id number] [place] 01:02:00 01:02:00 [facility] 2020-09-01 2020-09-01 Outpatient SISSON_C [facility] [id number] [place] 01:03:00 01:03:00 [facility] 2020-07-28 2020-07-28 Outpatient SISSON_C [facility] [id number] [place] 01:01:00 01:01:00 [facility] 2020-05-22 2020-05-22 Outpatient SISDIETER_Jovana [facility] [id number] [place] 11:39:00 11:39:00 [facility] 2019-02-01 2019-02-[address]840.114 [id number] 08:12:27 23:59:00 Encounter Gonzalo Ross [id number] [place] 4.2.7.2.686 [place] [id number] 2019-02-01 2019-02-01 [facility] 1.2.840.114 [id number] 08:12:00 08:12:00 Encounter Gonzalo Ross [id number] [place] 4.2.7.2.686 [place] [id number] Results This patient has no known results.
[2022-01-23 13:35] LABS: Absolute Lymphocytes (CBC) 0.8 K/uL (0.7-4.9); Hematocrit 46.8 % (39.6-49.0); Lymphocytes % 15.4 % (15.3-44.8); MCV 90.3 fL (80-100); MPV 7.2 fL (7.6-11.3); RBC Red Blood Cell Count 5.18 M/uL (4.33-5.43)
[2022-01-23] MEDS ORDERED: NA CHLORIDE 0.9% 1,000 ML ONE (13:50)
[2022-01-23] MEDS ORDERED: ONDANSETRON 4 MG/2 ML VIAL ONE ×2 (13:50→14:10)
--- NOTE | 2022-01-23 13:50 | RAD REPORT ---
EXAM DESCRIPTION: CT - Abdomen Pelvis Wo Contrast - 01/23/2022 1:29 pm CLINICAL HISTORY: Abdominal pain COMPARISON: None TECHNIQUE: Computed axial tomography of the abdomen and pelvis was obtained. IV and oral contrast we re not requested. All CT scans are performed using dose optimization technique as appropriate and may include automated exposure control or mA/KV adjustment according to patient size. FINDINGS: The evaluation of solid organs, vessels and bowel is limited secondary to the lack of con trast administration. The liver, spleen, pancreas, adrenals and kidneys appear grossly normal. The appendix is normal. There is no evidence of diverticulitis. Cholecystectomy IMPRESSION: No acute abnormality is displayed.
[2022-01-23] MEDS ORDERED: PROMETHAZINE INJ 25 MG/ML AMP ONE (14:47)
[2022-01-23 15:39] LABS: Albumin 3.7 g/dL (3.4-5.0); Bilirubin Total 1.4 mg/dL (0.2-1.0)
[2022-01-23 15:40] LABS: Potassium 3.9 mmol/L (3.5-5.1)
--- NOTE | 2022-01-23 16:48 | ER ---
Nurse's Notes [facility] Name: Neymar Shah Age: 56 yrs Sex: Male : 1965 Arrival Date: 01/23/2022 Time: 12:40 Bed 3 Private MD: Diagnosis: Nausea with vomiting, unspecified;Abdominal pain, unspecified Presentation: 01/23 12:53 Chief complaint: Patient states: i have been throwing up for five days and i can not ap3 keep anything down, it is making me feel so weak. Coronavirus screen: At this time, the client does not indicate any symptoms associated with coronavirus-19. Ebola Screen: No symptoms or risks identified at this time. Initial Sepsis Screen: Does the patient meet any 2 criteria? No. Patient's initial sepsis screen is negative. Does the patient have a suspected source of infection? No. Patient's initial sepsis screen is negative. Risk Assessment: Do you want to hurt yourself or someone else? Patient reports no desire to harm self or others. Onset of symptoms was January 17, 2022. 12:53 Method Of Arrival: Ambulatory ap3 12:53 Acuity: BOBBI 3 ap3 Triage Assessment: 12:55 General: Appears in no apparent distress. uncomfortable, Behavior is calm, cooperative. ap3 Pain: Complains of pain in abdomen. EENT: No deficits noted. No signs and/or symptoms were reported regarding the EENT system. Neuro: No deficits noted. Cardiovascular: No deficits noted. Respiratory: No deficits noted. GI: Reports anorexia, cramping, nausea, vomiting. : No deficits noted. No signs and/or symptoms were reported regarding the genitourinary system. Derm: No deficits noted. No signs and/or symptoms reported regarding the dermatologic system. Musculoskeletal: No deficits noted. No signs and/or symptoms reported regarding the musculoskeletal system. Historical: - Allergies: 12:55 Iodinated Contrast Media - IV Dye; ap3 - Home Meds: 12:55 lisinopril 10 mg Oral tab 1 tab once daily [Active]; ap3 - PMHx: 12:55 Hypertension; ap3 - Immunization history:: Adult Immunizations up to date. - Social history:: Patient/guardian denies using alcohol, street drugs, IV drugs, caffeine, Smoking status: Patient denies any tobacco usage or history of. Screenin:04 Abuse screen: Denies threats or abuse. Nutritional screening: No deficits noted. jd3 Tuberculosis screening: No symptoms or risk factors identified. Fall Risk Ambulatory Aid- None/Bed Rest/Nurse Assist (0 pts). Gait- Normal/Bed Rest/Wheelchair (0 pts) Mental Status- Oriented to own ability (0 pts). Total Delgadillo Fall Scale indicates No Risk (0-24 pts). Assessment: 13:32 General: Appears in no apparent distress. uncomfortable, Behavior is calm, cooperative, jd3 appropriate for age. Pain: Complains of pain in abdomen Quality of pain is described as aching. Neuro: Amaro Agitation-Sedation Scale (RASS): 0 - Alert and Calm Level of Consciousness is awake, alert, obeys commands, Oriented to person, place, time, situation. Cardiovascular: Capillary refill < 3 seconds Patient's skin is warm and dry. Respiratory: Airway is patent Respiratory effort is even, unlabored, Respiratory pattern is regular, symmetrical. GI: Abdomen is flat, non-distended, Abdomen is tender to palpation X 4 quads. Reports lower abdominal pain, upper abdominal pain, intolerance of fluids, intolerance of food, nausea, vomiting. : No signs and/or symptoms were reported regarding the genitourinary system. EENT: No signs and/or symptoms were reported regarding the EENT system. Derm: Skin is intact, Skin is dry, Skin is normal, Skin temperature is warm. Musculoskeletal: Circulation, motion, and sensation intact. Range of motion: intact in all extremities. 14:49 Reassessment: Patient appears in no apparent distress at this time. No changes from jd3 previously documented assessment. Patient and/or family updated on plan of care and expected duration. Pain level reassessed. Patient is alert, oriented x 3, equal unlabored respirations, skin warm/dry/pink. pt continues to report nausea. 15:53 Reassessment: Patient appears in no apparent distress at this time. Patient and/or jd3 family updated on plan of care and expected duration. Pain level reassessed. Patient is alert, oriented x 3, equal unlabored respirations, skin warm/dry/pink. Patient states feeling better. 16:59 Reassessment: Patient appears in no apparent distress at this time. Patient and/or jd3 family updated on plan of care and expected duration. Pain level reassessed. Patient is alert, oriented x 3, equal unlabored respirations, skin warm/dry/pink. 16:59 Reassessment: Patient appears in no apparent distress at this time. Patient and/or jd3 family updated on plan of care and expected duration. Pain level reassessed. Patient is alert, oriented x 3, equal unlabored respirations, skin warm/dry/pink. Patient states feeling better. Patient states symptoms have improved. Vital Signs: 12:53 Pulse 75; Resp 18; Temp 98.1(TE); Pulse Ox 100% on R/A; Weight 88.45 kg (R); Height 5 ap3 ft. 11 in. (180.34 cm); Pain 7/10; 12:56 BP 150 / 96; ap3 14:49 BP 138 / 90; Pulse 59; Resp 17; Pulse Ox 100% on R/A; jd3 15:53 BP 139 / 91; Pulse 63; Resp 16; Pulse Ox 98% on R/A; jd3 12:53 Body Mass Index 27.20 (88.45 kg, 180.34 cm) ap3 ED Course: 12:40 Patient arrived in ED. am2 12:55 Triage completed. ap3 12:55 Arm band placed on. ap3 13:01 Emma Chaudhary [facility]NP-C [facility]. kb 13:01 Curry King MD is Attending Physician. kb 13:04 Darin Woodward, TRACY is Primary Nurse. jd3 13:05 Patient has correct armband on for positive identification. Bed in low position. Call jd3 light in reach. Side rails up X 1. Pulse ox on. NIBP on. 13:18 Inserted saline lock: 20 gauge in left antecubital area, using aseptic technique. Blood jd3 collected. 13:31 CT Abd/Pelvis - Without Contrast In Process Unspecified. EDMS 16:59 No provider procedures requiring assistance completed. IV discontinued, intact, jd3 bleeding controlled, No redness/swelling at site. Pressure dressing applied. Administered Medications: 13:31 Drug: NS 0.9% 1000 ml Route: IV; Rate: 1 bolus; Site: left antecubital; jd3 14:30 Follow up: Response: No adverse reaction; IV Status: Completed infusion; IV Intake: jd3 1000ml 13:31 Drug: Zofran (Ondansetron) 4 mg Route: IVP; Site: left antecubital; jd3 14:05 Follow up: Response: No adverse reaction jd3 13:31 Not Given (Patient Refused): morphine 4 mg IVP once over 4 mins jd3 14:05 Drug: Zofran (Ondansetron) 4 mg Route: IVP; Site: left antecubital; jd3 15:00 Follow up: Response: No adverse reaction jd3 14:49 Drug: Phenergan (promethazine) 12.5 mg Route: IVP; Site: left antecubital; jd3 15:40 Follow up: Response: No adverse reaction jd3 Medication: 13:05 VIS not applicable for this client. jd3 Intake: 14:30 IV: 1000ml; Total: 1000ml. jd3 Outcome: 16:47 Discharge ordered by . kb 16:59 Discharged to home ambulatory, with family. jd3 16:59 Condition: stable 16:59 Discharge instructions given to patient, Instructed on discharge instructions, follow up and referral plans. medication usage, Demonstrated understanding of instructions, follow-up care, medications, Prescriptions given X 2. 17:00 Patient left the ED. jd3 Signatures: Dispatcher [employer] EDMS Emma Chaudhary, ALEX-C ACOUSTICAL TILE PATTERNMAKER-Luli Echeverria Jonathon, RN RN jd3 Luli Brito RN RN ap3 Corrections: (The following items were deleted from the chart) 12:55 12:55 PMHx: Diabetes - NIDDM; ap3 ap3
--- NOTE | 2022-01-23 16:48 | EDPHYS ---
Physician Documentation [facility] Name: Neymar Shah Age: 56 yrs Sex: Male : 1965 Arrival Date: 01/23/2022 Time: 12:40 Bed 3 Private MD: ED Physician Curry King HPI: 01/23 17:53 This 56 yrs old Male presents to ER via Ambulatory with complaints of Nausea, General kb Weakness. 17:53 The patient presents to the emergency department with nausea, vomiting, diarrhea. kb Onset: The symptoms/episode began/occurred 5 day(s) ago. Possible causes: unknown. The symptoms are aggravated by nothing. The symptoms are alleviated by nothing. Associated signs and symptoms: Pertinent positives: abdominal pain, diarrhea, fever, nausea, vomiting. Severity of symptoms: At their worst the symptoms were moderate in the emergency department the symptoms are unchanged. The patient has not experienced similar symptoms in the past. The patient has not recently seen a physician. Pt reports nausea and vomiting for 5 days with slight diarrhea. States he feels weak because he hasn't been able to keep anything down. Historical: - Allergies: 12:55 Iodinated Contrast Media - IV Dye; ap3 - Home Meds: 12:55 lisinopril 10 mg Oral tab 1 tab once daily [Active]; ap3 - PMHx: 12:55 Hypertension; ap3 - Immunization history:: Adult Immunizations up to date. - Social history:: Patient/guardian denies using alcohol, street drugs, IV drugs, caffeine, Smoking status: Patient denies any tobacco usage or history of. ROS: 14:53 Constitutional: Negative for fever, chills, and weight loss. kb 14:53 Abdomen/GI: Positive for abdominal pain, nausea and vomiting, diarrhea, Negative for constipation. 14:53 All other systems are negative. Exam: 14:55 Constitutional: This is a well developed, well nourished patient who is awake, alert, kb and in no acute distress. Head/Face: Normocephalic, atraumatic. ENT: Moist Mucous membranes Cardiovascular: Regular rate and rhythm with a normal S1 and S2. No gallops, murmurs, or rubs. No pulse deficits. Respiratory: Respirations even and unlabored. No increased work of breathing. Talking in full sentences Skin: Warm, dry with normal turgor. Normal color. MS/ Extremity: Pulses equal, no cyanosis. Neurovascular intact. Full, normal range of motion. Neuro: Awake and alert, GCS 15, oriented to person, place, time, and situation. Moves all extremities. Normal gait. Psych: Awake, alert, with orientation to person, place and time. Behavior, mood, and affect are within normal limits. 14:55 Abdomen/GI: Inspection: abdomen appears normal, Bowel sounds: normal, in all quadrants, Palpation: soft, in all quadrants, moderate abdominal tenderness, in all quadrants. Vital Signs: 12:53 Pulse 75; Resp 18; Temp 98.1(TE); Pulse Ox 100% on R/A; Weight 88.45 kg (R); Height 5 ap3 ft. 11 in. (180.34 cm); Pain 7/10; 12:56 BP 150 / 96; ap3 14:49 BP 138 / 90; Pulse 59; Resp 17; Pulse Ox 100% on R/A; jd3 15:53 BP 139 / 91; Pulse 63; Resp 16; Pulse Ox 98% on R/A; jd3 12:53 Body Mass Index 27.20 (88.45 kg, 180.34 cm) ap3 MDM: 13:01 Patient medically screened. kb 14:54 Data reviewed: vital signs, nurses notes. Data interpreted: Pulse oximetry: on room air kb is 100 %. Interpretation: normal. 16:47 Counseling: I had a detailed discussion with the patient and/or guardian regarding: the kb historical points, exam findings, and any diagnostic results supporting the discharge/admit diagnosis, lab results, radiology results, the need for outpatient follow up, a family practitioner, to return to the emergency department if symptoms worsen or persist or if there are any questions or concerns that arise at home. 01/23 13:08 Order name: CBC with Diff; Complete Time: 13:38 kb 01/23 13:08 Order name: CMP; Complete Time: 15:42 kb 01/23 13:08 Order name: Lipase; Complete Time: 15:42 kb 01/23 13:08 Order name: CT Abd/Pelvis - Without Contrast; Complete Time: 14:00 kb 01/23 15:21 Order name: COVID-19 SARS RT PCR (Document "Date of Onset" if Symptomatic); Complete kb Time: 16:26 01/23 13:08 Order name: IV Saline Lock; Complete Time: 13:18 kb 01/23 13:08 Order name: Labs collected and sent; Complete Time: 13:18 kb Administered Medications: 13:31 Drug: NS 0.9% 1000 ml Route: IV; Rate: 1 bolus; Site: left antecubital; jd3 14:30 Follow up: Response: No adverse reaction; IV Status: Completed infusion; IV Intake: jd3 1000ml 13:31 Drug: Zofran (Ondansetron) 4 mg Route: IVP; Site: left antecubital; jd3 14:05 Follow up: Response: No adverse reaction jd3 13:31 Not Given (Patient Refused): morphine 4 mg IVP once over 4 mins jd3 14:05 Drug: Zofran (Ondansetron) 4 mg Route: IVP; Site: left antecubital; jd3 15:00 Follow up: Response: No adverse reaction jd3 14:49 Drug: Phenergan (promethazine) 12.5 mg Route: IVP; Site: left antecubital; jd3 15:40 Follow up: Response: No adverse reaction jd3 Disposition Summary: 01/23/22 16:47 Discharge Ordered Location: Home kb Condition: Stable kb Diagnosis - Nausea with vomiting, unspecified kb - Abdominal pain, unspecified kb Followup: kb - With: Emergency Department - When: As needed - Reason: Worsening of condition Followup: kb - With: Private Physician - When: 2 - 3 days - Reason: Recheck today's complaints, Continuance of care, Re-evaluation by your physician Discharge Instructions: - Discharge Summary Sheet kb - Viral Gastroenteritis, Adult, [id number] kb - Nausea and Vomiting, Adult, Aoqk-no-[id number] kb - Abdominal Pain, Adult, Obyq-qs-Vuvh kb Forms: - Medication Reconciliation Form kb - Thank You Letter kb - Antibiotic Education kb - Prescription Opioid Use kb Prescriptions: - ondansetron 4 mg Oral tablet,disintegrating - take 1 tablet by ORAL route every 6 hours As needed; 12 tablet; Refills: 0, kb Product Selection Permitted - dicyclomine 20 mg Oral Tablet - take 1 tablet by ORAL route 4 times per day As needed; 20 tablet; Refills: 0, kb Product Selection Permitted Signatures: Dispatcher [employer] Emma Knowles, MOSES MANAGER SPA-Darin Maradiaga RN RN jd3 Luli Brito RN RN ap3 Corrections: (The following items were deleted from the chart) 12:55 12:55 PMHx: Diabetes - NIDDM; ap3 ap3
[2022-01-23 18:22] VITALS: TEMP 98.1
[2022-01-23 18:28] VITALS: BP 139/91; O2SAT 98
== END 2022-01-23 17:00 | disposition home or self-care (01) ==
LOC: ER 12:39
DX: R11.2 Nausea with vomiting, unspecified (principal); R10.9 Unspecified abdominal pain; I10 Essential (primary) hypertension; Z20.822 Contact with and (suspected) exposure to COVID-19; Z91.041 Radiographic dye allergy status
CPT/HCPCS: 96361; 85025; 36415; 83690; 80053; 74176; 96375; 96374; 99284; U0003; J2550; J7030; J2405 ×2

== ENCOUNTER 2022-05-22 10:40 | Emergency (ER) | payer OTHER ==
--- OUTSIDE RECORDS SUMMARY | 2022-05-22 10:43 | XMS REPORT | Continuity of Care Document ---
:1965 Author Organization [facility] t Address [address] [place] [address] Care Team Providers Name Role Phone Sinai Taylor MD Primary Care Physician DEYANIRA GARVIN Attending Clinician Unavailable SINAI TAYLOR Attending Clinician Unavailable JOYCE PIERCE Attending Clinician Unavailable Elmira Fitzgerald RN Attending Clinician Unavailable MACO Attending Clinician Unavailable Chago Muñiz RN Attending Clinician Unavailable Dolly Anderson LCSW Attending Clinician Unavailable Ashli Wilhelm - Claribel Attending Clinician Unava ilable FLYNN Attending Clinician Unavailable Frank Farrar Attending Clinician Gonzalo Koch MD Attending Clinician MACO Admitting Clinician Unavailable FLYNN Admitting Clinician Unavailable Payers Payer Name Policy Type Policy Number Effective Date Expiration Date S mamta [employer]NA MEDICARE [id number] 2020 ADVANTAGE HMO 00:00:00 MEDICARE B-[place]: [id number] 2006 Fanaticall 00:00:00 HUMANA (MEDICARE [id number] REPLACEMENT/ADVANT AGE - HMO) Problems Condition Condition Condition Status Onset Resolution Last Treating Co mments Source Name Details Category Date Date Treatment Clinician Date Abdominal Abdominal Disease Active [facility] pain, pain, 6-11 [facility] right right 00:00: upper upper 00 quadrant quadrant Arthralgia Arthralgia Disease Active [facility] of hip of hip 11-15 Health 00:00: 00 Hyperlipid Hyperlipid Disease Active [facility] emia emia 11-15 Health 00:00: 00 Hypertensi Hypertensi Disease Active [facility] on on 11-15 Health 00:00: 00 Lumbar Lumbar Disease Active [facility] radiculopa radiculopa 11-15 He alth thy thy 00:00: 00 Prediabete Prediabete Disease Active [facility] s s 11-15 Health 00:00: 00 Allergies, Adverse Reactions, Alerts Allergy Allergy Status Severity Reaction(s) Onset Inactive Treating Comm ents Source Name Type Date Date Clinician iodine iodine Active Erich Morin Social History Social Habit Start Date Stop Date Quantity Comments Source History [facility] Health Alcohol Comment History [facility] Alcohol Std Drinks History [facility] Alcohol Binge Exposure to Not sure [facility] SARS-CoV-2 (event) Alcohol intake 2020-12-17 2020-12-17 Lifetime [facility] 00:00:00 00:00:00 non-drinker (finding) Tobacco use and 2020-11-15 2020-11-15 Smokeless tobacco [facility] exposure 00:00:00 00:00:00 non-user History [facility] 2020-11-15 2020-11-15 1 [facility] Alcohol Frequency 00:00:00 00:00:00 Education 2020-11-15 2020-11-15 13 [facility] 00:00:00 00:00:00 Social History 2019-08-15 2019-08-15 [facility] 15:24:17 15:24:17 Sex Ass[birth year] At [birth year] [facility] 00:00:00 00:00:00 Smoking Status Start Date Stop Date Source Unknown if ever smoked [facility] Never smoked tobacco [facility] Medications Ordered Filled Start Stop Current Ordering Indication Dosage Frequency Signature Comments Components Source Medication Medication Date Date Medication? Clinician (SIG) Name Name QUEtiapine Yes [id number] 300mg Take 1 [facility] (SEROquel) 7-15 tablet Health 300 MG 00:00: (300 mg tablet 00 total) by mouth every night. QUEtiapine 2020- No [id number] 300mg Take 1 [facility] (SEROquel) 7-15 08-15 tablet Health 300 MG 00:00: 04:59 (300 mg tablet 00 :00 total) by mouth every night. QUEtiapine 2020-0 1- No [id number] 300mg Take 1 [facility] (SEROquel) 7-15 -15 tablet Health 300 MG 00:00: 04:59 (300 mg tablet 00 :00 total) by mouth every night. QUEtiapine 2020-0 1- No [id number] 300mg Take 1 [facility] (SEROquel) -15 -15 tablet Health 300 MG 00:00: 04:59 (300 mg tablet 00 :00 total) by mouth every night. QUEtiapine 2020-0 1- No 200mg Take 200 [facility] (SEROquel) 7-13 07-13 mg by Health 200 MG 16:28: 00:00 mouth tablet 28 :00 every night. QUEtiapine 2020-0 2020- No 200mg Take 200 [facility] (SEROquel) 7-13 07-13 mg by Health 200 MG 16:28: 00:00 mouth tablet 28 :00 every night. lisinopril 2020-0 Yes [id number] TAKE 1 U T 10 MG 7-13 TABLET BY Health tablet 00:00: MOUTH ONCE 00 DAILY FOR BLOOD PRESSURE QUEtiapine 2020-0 Yes [id number] 300mg Take 1 [facility] (SEROquel) 7-13 tablet Health 300 MG 00:00: (300 mg tablet 00 total) by mouth every night. lisinopril 1-0 Yes [id number] TAKE 1 U T 10 MG 7-13 TABLET BY Health tablet 00:00: MOUTH ONCE 00 DAILY FOR BLOOD PRESSURE lisinopril 2021-0 Yes [id number] TAKE 1 U T 10 MG 7-13 TABLET BY Health tablet 00:00: MOUTH ONCE 00 DAILY FOR BLOOD PRESSURE lisinopril 1-0 Yes [id number] TAKE 1 U T 10 MG 7-13 TABLET BY Health tablet 00:00: MOUTH ONCE 00 DAILY FOR BLOOD PRESSURE lisinopril 2021-0 Yes [id number] TAKE 1 U T 10 MG 7-13 TABLET BY Health tablet 00:00: MOUTH ONCE 00 DAILY FOR BLOOD PRESSURE lisinopril 2021-0 Yes [id number] TAKE 1 U T 10 MG 7-13 TABLET BY Health tablet 00:00: MOUTH ONCE 00 DAILY FOR BLOOD PRESSURE lisinopril 2021-0 Yes [id number] TAKE 1 U T 10 MG 7-13 TABLET BY Health tablet 00:00: MOUTH ONCE 00 DAILY FOR BLOOD PRESSURE QUEtiapine 2020-0 Yes [id number] 300mg Take 1 [facility] (SEROquel) 7-13 tablet Health 300 MG 00:00: (300 mg tablet 00 total) by mouth every night. QUEtiapine 2020-0 2020- No [facility] (SEROquel) 11-19 Health 300 MG 00:00: 00:00 tablet 00 :00 QUEtiapine 2020-0 2020- No [facility] (SEROquel) 11-19 Health 300 MG 00:00: 00:00 tablet 00 :00 QUEtiapine 2020-0 2020- No [facility] (SEROquel) 11-19 Health 300 MG 00:00: 00:00 tablet 00 :00 QUEtiapine 2020-0 2020- No [facility] (SEROquel) 11-19 Health 300 MG 00:00: 00:00 tablet 00 :00 QUEtiapine 2020-0 Yes 200mg Take 200 [facility] (SEROquel) 6-11 mg by Health 200 MG 14:41: mouth tablet 30 every night. QUEtiapine 2020-0 Yes 200mg Take 200 [facility] (SEROquel) 6-11 mg by Health 200 MG 14:41: mouth tablet 30 every night. QUEtiapine 2020-0 Yes 200mg Take 200 [facility] (SEROquel) 6-11 mg by Health 200 MG 14:41: mouth tablet 30 every night. lisinopril 2020-0 Yes [id number] TAKE 1 U T 10 MG 6-11 TABLET BY Health tablet 00:00: MOUTH ONCE 00 DAILY FOR BLOOD PRESSURE lisinopril 2020-0 Yes [id number] TAKE 1 U T 10 MG 6-11 TABLET BY Health tablet 00:00: MOUTH ONCE 00 DAILY FOR BLOOD PRESSURE lisinopril 2020-0 Yes [id number] TAKE 1 U T 10 MG 6-11 TABLET BY Health tablet 00:00: MOUTH ONCE 00 DAILY FOR BLOOD PRESSURE lisinopril 2020-0 2021- No [id number] TAKE 1 [facility] 10 MG 6-11 -13 TABLET BY Health tablet 00:00: 00:00 MOUTH ONCE 00 :00 DAILY FOR BLOOD PRESSURE lisinopril 2020- No [id number] TAKE 1 UT 10 MG 6-11 -13 TABLET BY Health tablet 00:00: 00:00 MOUTH ONCE 00 :00 DAILY FOR BLOOD PRESSURE lisinopril 2020- No [id number] TAKE 1 [facility] 10 MG 6-11 -13 TABLET BY Health tablet 00:00: 00:00 MOUTH ONCE 00 :00 DAILY FOR BLOOD PRESSURE lisinopril 2020- No [id number] TAKE 1 [facility] 10 MG 6-04 13-13 TABLET BY Health tablet 00:00: 00:00 MOUTH ONCE 00 :00 DAILY FOR BLOOD PRESSURE lisinopril 2019-06- No TAKE 1 UT 10 MG 0-08 -11 TABLET BY Health tablet 00:00: 00:00 MOUTH ONCE 00 :00 DAILY FOR BLOOD PRESSURE lisinopril 2019-06- No TAKE 1 UT 10 MG 0-08 -11 TABLET BY Health tablet 00:00: 00:00 MOUTH ONCE 00 :00 DAILY FOR BLOOD PRESSURE gabapentin 2019- Yes 300 mg = 1 M emoria 300 MG Oral 5-27 cap, PO, l Capsule 19:51: BID, # 60 Robyn nn 00 cap, 3 Refill(s), Pharmacy: [facility] [id number] metFORMIN 2020-0 Yes 500 mg = 1 Me moria 500 mg oral 3-10 tab, PO, l tablet, 15:16: Daily, 0 Yohan n extended 00 Refill(s) release lisinopril 2020-0 Yes 10 mg = 1 Me moria 10 mg oral 3-10 tab, PO, l tablet 15:16: Daily, 0 Mikel 00 Refill(s) atorvastati 2020-0 Yes 10 mg = 1 M emoria [...] tab, PO, l tablet 15:16: TID, 0 [place] 00 Refill(s) QUEtiapine 2020-0 Yes 25 mg = 1 Me moria 25 mg oral 3-10 tab, PO, l tablet 15:16: TID, 0 [place] 00 Refill(s) No known No [facility] No known No [facility] Immunizations Ordered Immunization Filled Immunization Date Status Commen ts Source Name Name [facility] 2020-12-17 Completed [facility] SARS-CoV-2 Vaccination [...] Time Observation Value Comments Source Systolic blood 2020-12-17 16:28:00 117 mm[Hg] [facility] pressure Diastolic blood 2020-12-17 16:28:00 74 mm[Hg] [facility] Heart rate 2020-12-17 16:28:00 93 /min [facility] Body temperature 2020-12-17 16:28:00 37 Luc[place] [facility] Respiratory rate 2020-12-17 16:28:00 18 /min [facility] Body height 2020-12-17 16:28:00 172.7 cm [facility] weight 2020-12-17 16:28:00 83.28 kg [facility] BMI 2020-12-17 16:28:00 27.92 [facility] in 2020-12-17 16:28:00 100 /min [facility] Arterial blood by Pulse oximetry Systolic blood 2020-11-15 14:55:00 142 mm[Hg] [facility] Diastolic blood 2020-11-15 14:55:00 80 mm[Hg] [facility] pressure Heart rate 2020-11-15 14:55:00 63 /min [facility] Body temperature 2020-11-15 14:55:00 37.06 Lucille [facility] Respiratory rate 2020-11-15 14:55:00 18 /min [facility] Body height 2020-11-15 14:55:00 180.3 cm [facility] weight 2020-11-15 14:55:00 82.01 kg [facility] BMI 2020-11-15 14:55:00 25.22 kg/m2 [facility] Oxygen saturation in 2020-11-15 14:55:00 98 /min [facility] Arterial blood by Pulse oximetry Systolic (mm Hg) 2019-11-01 18:26:00 Asaf rial [place] Diastolic (mm Hg) 2019-11-01 18:26:00 Mem orial Mikel Heart Rate 2019-11-01 18:26:00 [facility] Respitory Rate 2019-11-01 18:26:00 Memori al [place] Height 2019-11-01 18:26:00 170.18 cm [facility] Weight 2019-11-01 18:26:00 [facility] [place] BMI Calculated 2019-11-01 18:26:00 Memori al [place] Systolic (mm Hg) 2019-08-15 15:07:00 Asaf rial [place] Diastolic (mm Hg) 2019-08-15 15:07:00 Mem orial Mikel Heart Rate 2019-08-15 15:07:00 [facility] Respitory Rate 2019-08-15 15:07:00 Memori al [place] Height 2019-08-15 15:07:00 172.72 cm [facility] [place] Weight 2019-08-15 15:07:00 [facility] [place] BMI Calculated 2019-08-15 15:07:00 Memori al Mikel Procedures This patient has no known procedures. Encounters Start End Encounter Admission Attending Care Care Encounter Source Date/Time Date/Time Type Type Clinicians Facility Department ID 2022-04-08 Outpatient [facility] [id number] [place] 15:01:41 [id number] Health 2020-12-19 Outpatient GARVIN, [facility] [id number] [place] 17:38:24 KRISTIANOISAIAS [facility] 2020-12-17 Outpatient BUNAG, [facility] [id number] [place] 12:18:50 [facility] 2020-12-17 Outpatient [facility] [id number] [place] 12:17:35 Health 2020-11-18 Outpatient TEJINDER, [facility] [id number] [place] 09:13:25 JOYCE Health 2020-11-15 Outpatient [facility] [id number] [place] 10:26:51 Health 2020-11-15 Outpatient CLAUDIA, [facility] [id number] [place] 10:26:07 [facility] 2020-11-15 Outpatient VIRGIE, [facility] [id number] [place] 10:11:17 DEYANIRA [facility] 2021-06-17 2021-06-17 Telephone Elmira Fitzgerald 1.2.840. 114 [id number] [place] 00:00:00 00:00:00 Elmira Fitzgerald [id number] Health MEDICAL [id number] [place] [id number] 2021-04-30 2021-04-30 Outpatient [facility] [address] [place] 04:40:00 04:40:00 N 112[address] [facility] 2021-01-10 2021-01-10 Telephone Chago Muñiz [id number] [place] 00:00:00 00:00:00 Chago Muñiz [id number] Health MEDICAL [id number] [place] [id number] 2020-12-27 2020-12-27 Patient Dolly Anderson 1.2.8 40.114 [id number] [place] 00:00:00 00:00:00 Outreach Dolly Anderson 350.1. 13.58 Health [id number] 2020-12-24 2020-12-24 Patient Dolly Anderson 1.2.8 40.114 [id number] [place] 00:00:00 00:00:00 Outreach Dolly Anderson 350.1. 13.58 Health [id number] [id number] 2020-12-18 2020-12-18 Patient Dolly Anderson 1.2.8 40.114 [id number] [place] 00:00:00 00:00:00 Outreach Dolly Anderson 350.1. 13.58 Health [id number] 2020-12-17 2020-12-17 Immunizati Melonie KIMBERLEE 1.2.840.114 [id number] [place] 11:29:28 12:19:14 on Ashli WILHELM [id number] Health Vaccine - [id number] Moderna [id number] 2020-12-17 2020-12-17 Office ClaudiaKIMBERLEE 1.2.840.114 [id number] [place] 11:24:13 12:18:54 Visit [facility]inai WILHELM [id number] Health [id number] 2020-11-15 2020-11-15 Immunizlatoya KIMBERLEE Wilhelm 1.2.840.114 [id number] [place] 09:30:17 10:33:14 on Ashli WILHELM [id number] Health Vaccine - 9.2.7.2.686 Moderna [id number] 2 2020-11-15 2020-11-15 Office ClaudiaKIMBERLEE 1.2.840.114 [id number] [place] 08:49:58 10:26:50 Visit [facility] WILHELM [id number] Health [id number] 2020-11-15 2020-11-15 Telephone TejinderKIMBERLEE 1.2.840.114 [id number] [place] 00:00:00 00:00:00 Joyce WICK [id number] He alth [id number] [id number] 2020-11-13 2020-11-13 Patient Dolly Anderson 1.2.8 40.114 [id number] [place] 00:00:00 00:00:00 Outreach Dolly Anderson 350.1. 13.58 Health [id number] [id number] 2020-10-06 2020-10-06 Outpatient LORETO_Jvoana [facility] [id number] [place] 01:02:00 01:02:00 [facility] 2020-10-06 2020-10-06 Outpatient [facility] [id number] [place] 01:02:00 01:02:00 [facility] 2020-09-01 2020-09-01 Outpatient [facility] [id number] [place] 01:03:00 01:03:00 [facility] 2020-07-28 2020-07-28 Outpatient [facility] [id number] [place] 01:01:00 01:01:00 [facility] 2020-05-22 2020-05-22 Outpatient [facility] [id number] [place] 11:39:00 11:39:00 [facility] 2020-01-25 2020-01-25 Ambulatory nullFlavo MNA [id number] Memoria 16:15:00 16:15:00 Pre-Reg r Neurology 02 l Megan [place] 2020-01-25 2020-01-25 Outpatient NAZIA FarrarSCHER MHMISCHER [id number] 11:15:00 11:15:00 Frank 02 [place] 2019-12-28 2019-12-28 Outpatient MHIE MHIE [id number] Memoria 10:30:00 10:30:00 02 yarely [place] 2019-11-01 2019-11-02 Outpatient nullFlavo MNA [id number] Mem[place] 18:30:00 04:59:59 r Neurology 01 l Megan [place] 2019-11-01 2019-11-01 Outpatient NAZIA FarrarSCHER MHMISCHER [id number] 13:30:00 23:59:59 Frank 01 [place] 2019-11-01 2019-11-01 Outpatient MHIE MHIE [id number] [place] 13:30:00 13:30:00 01 yarely Morin 2019-08-15 2019-08-16 Outpatient nullFlavo MNA [id number] Mem[place] 15:00:00 04:59:59 r Neurology 00 l Megan Morin 2019-08-15 2019-08-15 Outpatient NAZIA FarrarSCHER MHMISCHER [id number] 10:00:00 23:59:59 Frank 00 [place] 2019-08-15 2019-08-15 Outpatient MHIE IE [id number] Erich 10:00:00 10:00:00 00 yarely Morin 2019-02-01 2019-02-01 [facility] 1.2.840.114 [id number] 08:12:27 23:59:00 Encounter Gonzalo Ross [id number] [place] [id number] [place] [id number] 2019-02-01 2019-02-01 [facility] 1.2.840.114 [id number] 08:12:00 08:12:00 Encounter Gonzalo Ross [id number] [place] 4.2.7.2.686 [place] [id number] Results This patient has no known results.
[2022-05-22 12:30] LABS: Absolute Lymphocytes (CBC) 0.9 K/uL (0.7-4.9); Hematocrit 51.5 % (39.6-49.0); Lymphocytes % 11.3 % (15.3-44.8); MCV 90.9 fL (80-100); MPV 6.8 fL (7.6-11.3); RBC Red Blood Cell Count 5.67 M/uL (4.33-5.43)
[2022-05-22] MEDS ORDERED: METOCLOPRAMIDE 10 MG/2mL INJ ONE (12:34)
[2022-05-22] MEDS ORDERED: Ringers Lactate 1,000 ML IV ONE (12:34)
[2022-05-22] MEDS ORDERED: DIPHENHYDRAMINE 50 MG/ML VIAL ONE (12:34)
[2022-05-22] MEDS ORDERED: ONDANSETRON 4 MG/2 ML VIAL ONE (12:34)
[2022-05-22 12:35] LABS: Protime INR 1.13
--- NOTE | 2022-05-22 12:47 | RAD REPORT ---
EXAM DESCRIPTION: CT - Abdomen Pelvis Wo Contrast - 05/22/2022 12:39 pm CLINICAL HISTORY: Abdominal pain. abdominal pain COMPARISON: Abdomen Pelvis Wo Contrast dated 01/23/2022 TECHNIQUE: CT imaging of the abdomen and pelvis was performed without contrast. Solid organ, bowel a nd vascular assessment is limited due to lack of IV and oral contrast. All CT scans are performed using dose optimization technique as appropriate and may include automated exposure control or mA/KV adjustment according to patient size. FINDINGS: The lower lung gilliam are clear.Cholecystectomy. The liver, spleen, pancreas, adrenal glands and kidneys are within normal limits for a limited non-co ntrast examination. No bowel obstruction, free air, free fluid or abscess. The appendix is normal. The osseous structures are within normal limits. IMPRESSION: No acute intra-abdominal or pelvic findings. A limited non-contrast examination was performed as detailed.
[2022-05-22 12:59] LABS: ALT/SGPT 33 U/L (16-61); AST/SGOT 19 U/L (15-37); Albumin 4.6 g/dL (3.4-5.0); Alkaline Phosphatase 151 U/L (45-117); BUN Blood Urea Nitrogen 18 mg/dL (7-18); Bicarbonate 26 mmol/L (21-32); Bilirubin Direct 0.2 mg/dL (0-0.2); Bilirubin Total 1.5 mg/dL (0.2-1.0); Glomerular Filtration Rate 67 ml/min (=/>90); Glucose Level 113 mg/dL (74-106); Lipase 83 U/L (73-393); Potassium 3.9 mmol/L (3.5-5.1); Protein, Total 8.2 g/dL (6.4-8.2); Sodium Level 136 mmol/L (136-145)
--- NOTE | 2022-05-22 14:59 | ER ---
Nurse's Notes [facility] Name: Neymar Shah Age: 56 yrs Sex: Male : 1965 Arrival Date: 05/22/2022 Time: 10:42 Bed 5 Private MD: Diagnosis: Nausea with vomiting, unspecified Presentation: 05/22 11:58 Chief complaint: Patient states: Reports withdrawal symptoms from Seroquel x3 days kb3 including vomiting, nausea. States he has been unable to get a hold of his doctor. Coronavirus screen: Vaccine status: Patient reports receiving the 2nd dose of the covid vaccine. Client denies travel out of the [place] in the last 14 days. Ebola Screen: Patient negative for fever greater than or equal to 101.5 degrees Fahrenheit, and additional compatible Ebola Virus Disease symptoms Patient denies exposure to infectious person. Patient denies travel to an Ebola-affected area in the 21 days before illness onset. Initial Sepsis Screen: Does the patient meet any 2 criteria? No. Patient's initial sepsis screen is negative. Does the patient have a suspected source of infection? No. Patient's initial sepsis screen is negative. Risk Assessment: Do you want to hurt yourself or someone else? Patient reports no desire to harm self or others. Onset of symptoms was May 19, 2022. 11:58 Method Of Arrival: Wheelchair kb3 11:58 Acuity: BOBBI 3 kb3 Triage Assessment: 12:00 General: Appears in no apparent distress. Behavior is calm, cooperative. Pain: kb3 Complains of pain in head, chest, right arm, left arm, right leg and left leg Pain does not radiate. Pain currently is 10 out of 10 on a pain scale. GI: Reports nausea, vomiting. Historical: - Allergies: 12:00 Iodinated Contrast Media - IV Dye; kb3 12:00 Morphine; kb3 - Home Meds: 12:00 lisinopril 10 mg Oral tab 1 tab once daily [Active]; Seroquel 50 mg Oral tab [Active]; kb3 - PMHx: 12:00 Hypertension; PTSD; kb3 - PSHx: 12:00 None; kb3 - Immunization history:: Adult Immunizations up to date, Client reports receiving the 2nd dose of the Covid vaccine. - Social history:: Smoking status: Patient denies any tobacco usage or history of. - Family history:: not pertinent. Screenin:30 [facility] ED Fall Risk Assessment (Adult) History of falling in the last 3 months, ko1 including since admission No falls in past 3 months (0 pts) Confusion or Disorientation No (0 pts) Intoxicated or Sedated No (0 pts) Impaired Gait No (0 pts) Mobility Assist Device Used No (0 pt) Altered Elimination No (0 pt) Score/Fall Risk Level 0 - 2 = Low Risk Oriented to surroundings, Maintained a safe environment, Educated pt \T\ family on fall prevention, incl call for assistance when getting out of bed, Provided non-skid footwear. Abuse screen: Denies threats or abuse. Denies injuries from another. Nutritional screening: No deficits noted. Tuberculosis screening: No symptoms or risk factors identified. Fall Risk No fall in past 12 months (0 pts). Assessment: 12:30 General: Appears distressed, uncomfortable, Behavior is cooperative, appropriate for ko1 age, anxious. Pain: Complains of pain in left leg and right leg and left arm and right arm and chest and head. Neuro: No deficits noted. Cardiovascular: No deficits noted. Respiratory: No deficits noted. GI: Bowel sounds present X 4 quads. Abd is soft Abdomen is tender to palpation X 4 quads. : No deficits noted. EENT: No deficits noted. Derm: No deficits noted. Musculoskeletal: No deficits noted. Vital Signs: 11:58 BP 137 / 86; Pulse 76; Resp 17; Temp 98.1; Pulse Ox 99% ; Weight 90.72 kg; Height 6 ft. kb3 0 in. (182.88 cm); Pain 10/10; 12:30 BP 132 / 75; Pulse 70; Resp 16; Pulse Ox 100% on R/A; ko1 14:55 BP 138 / 76; Pulse 78; Pulse Ox 99% on R/A; ko1 11:58 Body Mass Index 27.12 (90.72 kg, 182.88 cm) kb3 ED Course: 10:42 Patient arrived in ED. mr 12:00 Triage completed. kb3 12:00 Arm band placed on right wrist. kb3 12:02 Duong Marcano MD is Attending Physician. rt 12:06 Tanya Roblero, TRACY is Primary Nurse. ko1 12:30 Patient has correct armband on for positive identification. Bed in low position. Call ko1 light in reach. Side rails up X 1. Pulse ox on. NIBP on. 12:30 Lipase Sent. ko1 12:30 Acetaminophen Sent. ko1 12:30 Basic Metabolic Panel Sent. ko1 12:30 Hepatic Function Sent. ko1 12:30 PT-INR Sent. ko1 12:30 Ptt, Activated Sent. ko1 12:30 Salicylate Sent. ko1 12:30 Inserted saline lock: 20 gauge in right antecubital area, using aseptic technique. ko1 Blood collected. 12:40 CT Abd/Pelvis - Without Contrast In Process Unspecified. EDMS 15:12 No provider procedures requiring assistance completed. IV discontinued, intact, ko1 bleeding controlled, No redness/swelling at site. Pressure dressing applied. Administered Medications: 11:01 CANCELLED (Duplicate Order): NS 0.9% 1000 ml IV at 1 bolus Per protocol; 1000 mL bolus [facility] 12:46 Drug: Zofran (Ondansetron) 4 mg Route: IVP; Site: right antecubital; ko1 15:19 Follow up: Response: No adverse reaction; Marked relief of symptoms; Nausea is ko1 decreased; Vomiting decreased 12:46 Drug: Lactated Ringers Solution 1000 ml Route: IV; Rate: 150 ml/hr; Site: right ko1 antecubital; 15:19 Follow up: IV Intake: 1000ml ko1 15:19 Follow up: Response: No adverse reaction ko1 12:46 Drug: Reglan (metoCLOPramide) 10 mg Route: IVP; Site: right antecubital; ko1 15:18 Follow up: Response: No adverse reaction; Marked relief of symptoms ko1 12:46 Drug: Benadryl (diphenhydrAMINE) 25 mg Route: IVP; Site: right antecubital; ko1 15:18 Follow up: Response: No adverse reaction ko1 Medication: 15:12 VIS not applicable for this client. ko1 Intake: 14:55 IV: 1000ml; Total: 1000ml. ko1 15:19 IV: 1000ml; Total: 2000ml. ko1 Output: 14:55 Urine: 300ml (Voided); Total: 300ml. ko1 Outcome: 14:58 Discharge ordered by . rt 15:12 Discharged to home ambulatory, with family. ko1 15:12 Condition: improved 15:12 Discharge instructions given to patient, family, Instructed on discharge instructions, the need for admit, medication usage, Demonstrated understanding of instructions, follow-up care, medications, Prescriptions given X 1. 15:20 Patient left the ED. ko1 Signatures: Dispatcher [employer] EDMS Keshia LukeDivya RN RN kb3 Tanya Roblero RN RN ko1 Duong Marcano MD MD rt Mickail, Joel PA jmm Corrections: (The following items were deleted from the chart) 12:36 12:30 ETHANOL+C.LAB.BRZ drawn and sent. ko1 [facility]
--- NOTE | 2022-05-22 14:59 | EDPHYS ---
Physician Documentation [facility] Name: Neymar Shah Age: 56 yrs Sex: Male : 1965 Arrival Date: 05/22/2022 Time: 10:42 Bed 5 Private MD: ED Physician Duong Marcano HPI: 05/22 13:53 This 56 yrs old Male presents to ER via Wheelchair with complaints of Abdominal Pain, rt Vomiting, Pain All Over. 13:53 The patient presents to the emergency department with nausea, vomiting, abdominal pain. rt Onset: The symptoms/episode began/occurred gradually. The symptoms are aggravated by nothing. The symptoms are alleviated by nothing. Severity of symptoms: At their worst the symptoms were moderate. Presents to the ED with nausea, vomiting, generalized abdominal pain that started with the cessation of his Seroquel. The patient reports a headache but denies other acute complaints at this time. Pain is aching nature, nonradiating, no other aggravating alleviating factors.. Historical: - Allergies: 12:00 Iodinated Contrast Media - IV Dye; kb3 12:00 Morphine; kb3 - Home Meds: 12:00 lisinopril 10 mg Oral tab 1 tab once daily [Active]; Seroquel 50 mg Oral tab [Active]; kb3 - PMHx: 12:00 Hypertension; PTSD; kb3 - PSHx: 12:00 None; kb3 - Immunization history:: Adult Immunizations up to date, Client reports receiving the 2nd dose of the Covid vaccine. - Social history:: Smoking status: Patient denies any tobacco usage or history of. - Family history:: not pertinent. ROS: 13:53 Constitutional: Negative for fever, chills, and weight loss, Eyes: Negative for injury, rt pain, redness, and discharge, ENT: Negative for injury, pain, and discharge, Neck: Negative for injury, pain, and swelling, Cardiovascular: Negative for chest pain, palpitations, and edema, Respiratory: Negative for shortness of breath, cough, wheezing, and pleuritic chest pain, Back: Negative for injury and pain, : Negative for injury, bleeding, discharge, and swelling, MS/Extremity: Negative for injury and deformity, Skin: Negative for injury, rash, and discoloration, Psych: Negative for depression, anxiety, suicide ideation, homicidal ideation, and hallucinations. 13:53 Abdomen/GI: Positive for abdominal pain, nausea and vomiting. 13:53 Neuro: Positive for headache, Negative for altered mental status. Exam: 13:53 Constitutional: This is a well developed, well nourished patient who is awake, alert, rt and in no acute distress. Head/Face: Normocephalic, atraumatic. Eyes: Pupils equal round and reactive to light, extra-ocular motions intact. Lids and lashes normal. Conjunctiva and sclera are non-icteric and not injected. Cornea within normal limits. Periorbital areas with no swelling, redness, or edema. ENT: Nares patent. No nasal discharge, no septal abnormalities noted. Tympanic membranes are normal and external auditory canals are clear. Oropharynx with no redness, swelling, or masses, exudates, or evidence of obstruction, uvula midline. Mucous membranes moist. Neck: Trachea midline, no thyromegaly or masses palpated, and no cervical lymphadenopathy. Supple, full range of motion without nuchal rigidity, or vertebral point tenderness. No Meningismus. Chest/axilla: Normal chest wall appearance and motion. Nontender with no deformity. No lesions are appreciated. Cardiovascular: Regular rate and rhythm with a normal S1 and S2. No gallops, murmurs, or rubs. Normal PMI, no JVD. No pulse deficits. Respiratory: Lungs have equal breath sounds bilaterally, clear to auscultation and percussion. No rales, rhonchi or wheezes noted. No increased work of breathing, no retractions or nasal flaring. Abdomen/GI: Soft, non-tender, with normal bowel sounds. No distension or tympany. No guarding or rebound. No evidence of tenderness throughout. Skin: Warm, dry with normal turgor. Normal color with no rashes, no lesions, and no evidence of cellulitis. MS/ Extremity: Pulses equal, no cyanosis. Neurovascular intact. Full, normal range of motion. Neuro: Awake and alert, GCS 15, oriented to person, place, time, and situation. Cranial nerves II-XII grossly intact. Motor strength 5/5 in all extremities. Sensory grossly intact. Cerebellar exam normal. Normal gait. Psych: Awake, alert, with orientation to person, place and time. Behavior, mood, and affect are within normal limits. 13:55 ECG was reviewed by the Attending Physician. rt Vital Signs: 11:58 BP 137 / 86; Pulse 76; Resp 17; Temp 98.1; Pulse Ox 99% ; Weight 90.72 kg; Height 6 ft. kb3 0 in. (182.88 cm); Pain 10/10; 12:30 BP 132 / 75; Pulse 70; Resp 16; Pulse Ox 100% on R/A; ko1 14:55 BP 138 / 76; Pulse 78; Pulse Ox 99% on R/A; ko1 11:58 Body Mass Index 27.12 (90.72 kg, 182.88 cm) kb3 MDM: 11:02 Patient medically screened. [facility] 15:06 Differential diagnosis: Patient presents to the ED with nausea, vomiting, generalized rt abdominal pain. He attributes this to being off of his Seroquel. Patient with significant symptomatic relief with Reglan, Zofran, IV fluids. Labs, CT scan are benign. Patient is stable for outpatient care, return precautions were discussed. 15:07 Data reviewed: vital signs, nurses notes, lab test result(s), EKG, radiologic studies. rt 05/22 11:01 Order name: Acetaminophen; Complete Time: 13:40 [facility] 05/22 11:01 Order name: Basic Metabolic Panel; Complete Time: 13:40 [facility] 05/22 11:01 Order name: CBC with Diff; Complete Time: 12:53 [facility] 05/22 11:01 Order name: Hepatic Function; Complete Time: 13:40 [facility] 05/22 11:01 Order name: PT-INR; Complete Time: 12:53 [facility] 05/22 11:01 Order name: Ptt, Activated; Complete Time: 12:53 [facility] 05/22 11:01 Order name: Salicylate; Complete Time: 13:40 [facility] 05/22 11:02 Order name: Lipase; Complete Time: 13:40 [facility] 05/22 12:23 Order name: CT Abd/Pelvis - Without Contrast; Complete Time: 12:53 rt 05/22 12:42 Order name: Alcohol Serum/Plasma; Complete Time: 12:53 [facility] 05/22 11:01 Order name: EKG; Complete Time: 11:02 [facility] 05/22 11:01 Order name: EKG - Nurse/Tech; Complete Time: 12:30 [facility] 05/22 11:01 Order name: IV Saline Lock; Complete Time: 12:30 [facility] 05/22 11:01 Order name: Labs collected and sent; Complete Time: 12:30 [facility] 05/22 11:01 Order name: Suicide Screening ([place]); Complete Time: 12:37 [facility] 05/22 11:01 Order name: Urine Dipstick-Ancillary (obtain specimen) [facility] EC:55 Rate is 71 beats/min. Rhythm is regular, Normal Sinus Rhythm with No ectopy. QRS [place] rt is Normal. VT interval is normal. QRS interval is normal. QT interval is normal. No Q waves. T waves are Normal. No ST changes noted. Clinical impression: Normal ECG. Interpreted by me. Administered Medications: 11:01 CANCELLED (Duplicate Order): NS 0.9% 1000 ml IV at 1 bolus Per protocol; 1000 mL bolus [facility] 12:46 Drug: Zofran (Ondansetron) 4 mg Route: IVP; Site: right antecubital; ko1 15:19 Follow up: Response: No adverse reaction; Marked relief of symptoms; Nausea is ko1 decreased; Vomiting decreased 12:46 Drug: Lactated Ringers Solution 1000 ml Route: IV; Rate: 150 ml/hr; Site: right ko1 antecubital; 15:19 Follow up: IV Intake: 1000ml ko1 15:19 Follow up: Response: No adverse reaction ko1 12:46 Drug: Reglan (metoCLOPramide) 10 mg Route: IVP; Site: right antecubital; ko1 15:18 Follow up: Response: No adverse reaction; Marked relief of symptoms ko1 12:46 Drug: Benadryl (diphenhydrAMINE) 25 mg Route: IVP; Site: right antecubital; ko1 15:18 Follow up: Response: No adverse reaction ko1 Disposition Summary: 05/22/22 14:58 Discharge Ordered Location: Home rt Problem: new rt Symptoms: have improved rt Condition: Stable rt Diagnosis - Nausea with vomiting, unspecified rt Followup: rt - With: Private Physician - When: 2 - 3 days - Reason: Discharge Instructions: - Discharge Summary Sheet rt - Nausea and Vomiting, Adult rt Forms: - Medication Reconciliation Form rt - Thank You Letter rt - Antibiotic Education rt - Prescription Opioid Use rt Prescriptions: - Reglan 10 mg Oral Tablet - take 1 tablet by ORAL route every 6 hours; 21 tablet; Refills: 0, Product rt Selection Permitted Signatures: Dispatcher [employer] EDMS Shawn Ruggiero PA PA jmm Bradberry, Kelly, RN RN kb3 Tanya Roblero, RN RN ko1 Duong Marcano MD MD rt Corrections: (The following items were deleted from the chart) 11:01 11:01 NS 0.9% 1000 ml IV at 1 bolus Per protocol; 1000 mL bolus ordered. jimi krause 12:36 11:02 ETHANOL+C.LAB.BRZ ordered. EDMS EDMS
[2022-05-22 15:26] VITALS: TEMP 98.1
[2022-05-22 15:29] VITALS: BP 138/76; O2SAT 99
--- NOTE | 2022-05-24 15:56 | EKG ---
Test Date: 2022-05-22 Test Time: 12:27:19 Customizer: [employer]MEN MEASUREMENT RESULTS: Intervals: Rate: 71 DC: 158 QRSD: 90 QT: 430 QTc: 467 [place]: P: 42 DC: 158 QRS: 70 T: 49 INTERPRETIVE STATEMENTS: Normal sinus rhythm Normal ECG Compared to ECG 01/03/2020 07:50:14 No significant changes Electronically Signed On 05-24-22 15:54:50 MEDIA SERVICES DIRECTOR by Ke Martinez
== END 2022-05-22 15:20 | disposition home or self-care (01) ==
LOC: ER 10:40
DX: R11.2 Nausea with vomiting, unspecified (principal); R10.84 Generalized abdominal pain; I10 Essential (primary) hypertension; F43.10 Post-traumatic stress disorder, unspecified; Z88.5 Allergy status to narcotic agent; Z91.041 Radiographic dye allergy status
CPT/HCPCS: 93005; 85025; 80048; 36415; 80320; 80329 ×2; 85610; 80076; 85730; 83690; 74176; 96375; 96374; 99284; J2765; J1200; J7120; J2405

== ENCOUNTER 2022-11-17 23:37 | Emergency (ER) | payer OTHER ==
--- OUTSIDE RECORDS SUMMARY | 2022-11-17 23:40 | XMS REPORT | Continuity of Care Document ---
:1965 Author Organization [facility] t Address [address] [place] [address] [address] [place] [address] Care Team Providers Name Role Phone Claudia LANDIN, Sinai Primary Care Physician DEYANIRA GARVIN Attending Clinician Unavailable SINAI MANRIQUEZ Attending Clinician Unavailable JOYCE MARR Attending Clinician Unavailable Amilcar MOLINA, [place] Attending Clinician Unavailable MACO Attending Clinician Unavailable Antonino MOLINA, [place] Attending Clinician Unavailable Dolly Anderson LCSW Attending Clinician Unavailable Ashli Wilhelm - Moderna Attending Clinician UnaFrank Wade Attending Clinician MACO Admitting Clinician Unavailable Payers Payer Name Policy Type Policy Number Effective Date Expiration Date S mamta [employer] MEDICARE [id number] 2020 [facility] 00:00:00 Problems Condition Condition Condition Status Onset Resolution [...] Health 00:00: 00 Lumbar Lumbar Disease Active UT radiculopa radiculopa 11-15 He alth thy thy 00:00: 00 Prediabete Prediabete Disease Active U T s s 611 Health 00:00: 00 Allergies, Adverse Reactions, Alerts Allergy Allergy Status Severity Reaction(s) Onset Inactive Treating Comm ents Source Name Type Date Date Clinician iodine iodine Active Erich Morin Social History Social Habit Start Date Stop Date Quantity Comments Source History [facility] Health Alcohol Comment History [facility] Alcohol Std Drinks History [facility] Alcohol Binge Exposure to Not sure [facility] SARS-CoV-2 (event) Alcohol intake 2020-12-17 2020-12-17 Lifetime [facility] 00:00:00 00:00:00 non-drinker (finding) Tobacco use and 2020-11-15 2020-11-15 Smokeless tobacco [facility] exposure 00:00:00 00:00:00 non-user History SDMO 2020-11-15 2020-11-15 1 [facility] Alcohol Frequency 00:00:00 00:00:00 Education 2020-11-15 2020-11-15 13 [facility] 00:00:00 00:00:00 Social History 2019-08-15 2019-08-15 [facility] [place] [facility] 15:24:17 15:24:17 Sex Ass[birth year] At [birth year] [facility] 00:00:00 00:00:00 Smoking Status Start Date Stop Date Source Unknown if ever smoked [facility] Never smoked tobacco [facility] Medications Ordered Filled Start Stop Current Ordering Indication Dosage Frequency Signature Comments Components Source Medication Medication Date Date Medication? Clinician (SIG) Name Name QUEtiapine Yes [id number] 300mg Take 1 UT (SEROquel) 12-19 tablet Health 300 MG 00:00: (300 mg tablet 00 total) by mouth every night. QUEtiapine No [id number] 300mg Take 1 [facility] (SEROquel) 12-19 tablet Health 300 MG 00:00: 04:59 (300 mg tablet 00 :00 total) by mouth every night. QUEtiapine 2020- No [id number] 300mg Take 1 [facility] (SEROquel) 12-19 tablet Health 300 MG 00:00: 04:59 (300 mg tablet 00 :00 total) by mouth every night. QUEtiapine 2020- No [id number] 300mg Take 1 [facility] (SEROquel) 7-15 08-15 tablet Health 300 MG 00:00: 04:59 (300 mg tablet 00 :00 total) by mouth every night. QUEtiapine 2020-0 1- No 200mg Take 200 U T (SEROquel) 7-13 07-13 mg by Health 200 MG 16:28: 00:00 mouth tablet 28 :00 every night. QUEtiapine 2020-0 1- No 200mg Take 200 U T (SEROquel) 7-13 07-13 mg by Health 200 MG 16:28: 00:00 mouth tablet 28 :00 every night. lisinopril 1-0 Yes [id number] TAKE 1 U T 10 MG 7-13 TABLET BY Health tablet 00:00: MOUTH ONCE 00 DAILY FOR BLOOD PRESSURE QUEtiapine 2020-0 Yes [id number] 300mg Take 1 [facility] (SEROquel) 7-13 tablet Health 300 MG 00:00: (300 mg tablet 00 total) by mouth every night. lisinopril 1-0 Yes [id number] TAKE 1 U T 10 MG 7-13 TABLET BY Health tablet 00:00: MOUTH ONCE 00 DAILY FOR BLOOD PRESSURE lisinopril 2021-0 Yes [id number] TAKE 1 U T 10 MG 7-13 TABLET BY Health tablet 00:00: MOUTH ONCE 00 DAILY FOR BLOOD PRESSURE lisinopril 2021-0 Yes [id number] TAKE 1 U T 10 MG 7-13 TABLET BY Health tablet 00:00: MOUTH ONCE 00 DAILY FOR BLOOD PRESSURE lisinopril 2021-0 Yes [id number] TAKE 1 U T 10 MG 7-13 TABLET BY Health tablet 00:00: MOUTH ONCE 00 DAILY FOR BLOOD PRESSURE lisinopril 2021-0 Yes [id number] TAKE 1 U T 10 MG 7-13 TABLET BY Health tablet 00:00: MOUTH ONCE 00 DAILY FOR BLOOD PRESSURE lisinopril 2021-0 Yes [id number] TAKE 1 U T 10 MG 7-13 TABLET BY Health tablet 00:00: MOUTH ONCE 00 DAILY FOR BLOOD PRESSURE QUEtiapine 2021-0 Yes [id number] 300mg Take 1 UT (SEROquel) 7-13 tablet Health 300 MG 00:00: (300 mg tablet 00 total) by mouth every night. QUEtiapine 1-0 2021- No UT (SEROquel) 6-15 07-13 Health 300 MG 00:00: 00:00 tablet 00 [...] tablet 30 every night. lisinopril 2020-0 Yes [id number] TAKE 1 U T 10 MG 6-11 TABLET BY Health tablet 00:00: MOUTH ONCE 00 DAILY FOR BLOOD PRESSURE lisinopril 2020-0 Yes [id number] TAKE 1 U T 10 MG 6-11 TABLET BY Health tablet 00:00: MOUTH ONCE 00 DAILY FOR BLOOD PRESSURE lisinopril 2020-0 Yes [id number] TAKE 1 U T 10 MG 6-11 TABLET BY Health tablet 00:00: MOUTH ONCE 00 DAILY FOR BLOOD PRESSURE lisinopril 2020-0 2020- No [id number] TAKE 1 UT 10 MG 6-11 07-13 TABLET BY Health tablet 00:00: 00:00 MOUTH ONCE 00 :00 DAILY FOR BLOOD PRESSURE lisinopril 2020-0 2020- No [id number] TAKE 1 UT 10 MG 6-11 07-13 TABLET BY Health tablet 00:00: 00:00 MOUTH ONCE 00 :00 DAILY FOR BLOOD PRESSURE lisinopril 2020-0 2020- No [id number] TAKE 1 UT 10 MG 6-11 07-13 TABLET BY Health tablet 00:00: 00:00 MOUTH ONCE 00 :00 DAILY FOR BLOOD PRESSURE lisinopril 2020-0 2020- No [id number] TAKE 1 UT 10 MG 6-11 07-13 TABLET BY Health tablet 00:00: 00:00 MOUTH ONCE 00 :00 DAILY FOR BLOOD PRESSURE lisinopril 2019-06- No TAKE 1 UT 10 MG 0-08 06-11 TABLET BY Health tablet 00:00: 00:00 MOUTH ONCE 00 :00 DAILY FOR BLOOD PRESSURE lisinopril 2019-06- No TAKE 1 UT 10 MG 0-08 06-11 TABLET BY Health tablet 00:00: 00:00 MOUTH ONCE 00 :00 DAILY FOR BLOOD PRESSURE gabapentin 2020-0 Yes 300 mg = 1 M emoria 300 MG Oral 5-27 cap, PO, l Capsule 19:51: BID, # 60 Robyn nn 00 cap, 3 Refill(s), Pharmacy: [facility] 482 gabapentin 2020-0 Yes 300 mg = 1 M emoria 300 MG Oral 5-27 cap, PO, l Capsule 19:51: BID, # 60 Robyn nn 00 cap, 3 Refill(s), Pharmacy: [facility] 482 lisinopril 2020-0 Yes 10 mg = 1 [...] tab, PO, l tablet 15:16: TID, 0 [place] 00 Refill(s) QUEtiapine 2020-0 Yes 25 mg = 1 Me moria 25 mg oral 3-10 tab, PO, l tablet 15:16: TID, 0 [place] 00 Refill(s) metFORMIN 2020-0 Yes 500 mg = 1 [...] tab, PO, l tablet 15:16: TID, 0 [place] 00 Refill(s) QUEtiapine 2020-0 Yes 25 mg = 1 Me moria 25 mg oral 3-10 tab, PO, l tablet 15:16: TID, 0 Mikel 00 Refill(s) metFORMIN 2020-0 Yes 500 mg = 1 Me moria 500 mg oral 3-10 tab, PO, l tablet, 15:16: Daily, 0 Yohan n extended 00 Refill(s) release No known No [facility] No [...] Oxygen saturation in 2020-12-17 16:28:00 100 /min [facility] Arterial blood by Pulse oximetry Systolic blood [...] h Body weight 2020-11-15 14:55:00 82.01 kg [facility] BMI 2020-11-15 14:55:00 25.22 kg/m2 [facility] Oxygen saturation in 2020-11-15 14:55:00 98 /min [facility] Arterial blood by Pulse oximetry Systolic (mm Hg) 2019-11-01 18:26:00 Asaf rial [place] Diastolic (mm Hg) 2019-11-01 18:26:00 Mem o[facility] [place] Heart Rate 2019-11-01 18:26:00 [facility] [place] Respitory Rate 2019-11-01 18:26:00 Memori al [place] Height 2019-11-01 18:26:00 170.18 cm [facility] [place] Weight 2019-11-01 18:26:00 [facility] [place] BMI Calculated 2019-11-01 18:26:00 Memori al [place]el Systolic (mm Hg) 2019-08-15 15:07:00 Asaf rial [place] Diastolic (mm Hg) 2019-08-15 15:07:00 Mem o[facility] [place] Heart Rate 2019-08-15 15:07:00 [facility] [place] Respitory Rate 2019-08-15 15:07:00 [facility] [place] Height 2019-08-15 15:07:00 172.72 cm [facility] Weight 2019-08-15 15:07:00 [facility] [place] BMI Calculated 2019-08-15 15:07:00 Juju Bradshaw Procedures This patient has no known procedures. Encounters Start End Encounter Admission Attending Care Care Encounter Source Date/Time Date/Time Type Type Clinicians Facility Department ID 2022-04-08 Outpatient [facility] [id number] [place] 15:01:41 [id number] [facility] 2020-12-19 Outpatient VIRGIE, [facility] [id number] [place] 17:38:24 [facility] 2020-12-17 Outpatient RENAE, [facility] [id number] [place] 12:18:50 [facility] 2020-12-17 Outpatient [facility] [id number] [place] 12:17:35 [facility] 2020-11-18 Outpatient STAN, [facility] [id number] [place] 09:13:25 [facility] 2020-11-15 Outpatient [facility] [id number] [place] 10:26:51 [facility] 2020-11-15 Outpatient CLAUDIA, [facility] [id number] [place] 10:26:07 [facility] 2020-11-15 Outpatient VIRGIE, [facility] [id number] [place] 10:11:17 [facility] 2021-06-17 2021-06-17 Telephone Elmira Fitzgerald 1.2.840. 114 [id number] [place] 00:00:00 00:00:00 El[place]ira Fitzgerald [id number] Health MEDICAL [id number] [place] [id number] 2021-04-30 2021-04-30 Outpatient RANDYLY [facility] [address] [place] 04:40:00 04:40:00 N 1124 da [facility] 2021-01-10 2021-01-10 Telephone Chago Muñiz 1.2.840.11 [id number] [place] 00:00:00 00:00:00 Chago Muñiz [id number] Health MEDICAL [id number] [place] [id number] 2020-12-27 2020-12-27 Patient Dolly Anderson 1.2.8 40.114 [id number] [place] 00:00:00 00:00:00 Outreach Dolly Anderson 350.1. 13.58 Health [id number] 2020-12-24 2020-12-24 Patient Dolly Anderson UTP 1.2.8 40.114 [id number] [place] 00:00:00 00:00:00 Outreach Dolly Anderson 350.1. 13.58 Health [id number] [id number] 2020-12-18 2020-12-18 Patient Dolly Anderson UTP 1.2.8 40.114 [id number] [place] 00:00:00 00:00:00 Outreach Dolly Anderson 350.1. 13.58 Health [id number] [id number] 2020-12-17 2020-12-17 Immunizati KIMBERLEE Wilhelm 1.2.840.114 [id number] [place] 11:29:28 12:19:14 on Ashli LUNABERG [id number] Health Vaccine - 9.2.7.2.686 Moderna [id number] 2020-12-17 2020-12-17 Office RenaeirisKIMBERLEE 1.2.840.114 [id number] [place] 11:24:13 12:18:54 Visit Sinaicyril WILHELM [id number] Health [id number] [id number] 2020-11-15 2020-11-15 ImmunizKIMBERLEE Pablo 1.2.840.114 [id number] [place] 09:30:17 10:33:14 on Ashli LUNABERG [id number] Health Vaccine - 9.2.7.2.686 Moderna [id number] 2 2020-11-15 2020-11-15 Office RenaeirisKIMBERLEE 1.2.840.114 [id number] [place] 08:49:58 10:26:50 Visit [facility]inai LÁZARO [id number] Health [id number] [id number] 2020-11-15 2020-11-15 Telephone KIMBERLEE Marr 1.2.840.114 [id number] [place] 00:00:00 00:00:00 Joyce WICK [id number] He alth [id number] [id number] 2020-11-13 2020-11-13 Patient Dolly Anderson 1.2.8 40.114 [id number] [place] 00:00:00 00:00:00 Outreach Dolly Anderson 350.1. 13.58 Health [id number] [id number] 2020-01-25 2020-01-25 Ambulatory nullFlavo MNA [id number] Memoria 16:15:00 16:15:00 Pre-Reg r Neurology [address] [facility] 2020-01-25 2020-01-25 Ambulatory nullFlavo MNA [id number] Memoria 16:15:00 16:15:00 Pre-Reg r Neurology 02 l [facility] [place] 2020-01-25 2020-01-25 Outpatient NAZIA FarrarSCHER MHMISCHER [id number] 11:15:00 11:15:00 Frank 02 [place] 2019-12-28 2019-12-28 Outpatient MHIE MHIE [id number] Memoria 10:30:00 10:30:00 02 l [place] 2019-11-01 2019-11-02 Outpatient nullFlavo MNA [id number] Memoria 18:30:00 04:59:59 r Neurology [address] [facility] 2019-11-01 2019-11-02 Outpatient nullFlavo MNA [id number] Memoria 18:30:00 04:59:59 r Neurology [address] [facility] 2019-11-01 2019-11-01 Outpatient NAZIA FarrarSCHER MHMISCHER [id number] 13:30:00 23:59:59 Frank 01 [facility] 2019-11-01 2019-11-01 Outpatient MHIE MHIE [id number] Memoria 13:30:00 13:30:00 01 l [place] 2019-08-15 2019-08-16 Outpatient nullFlavo MNA [id number] Memoria 15:00:00 04:59:59 r Neurology 00 l Megan Morin 2019-08-15 2019-08-16 Outpatient nullFlavo MNA [id number] Memoria 15:00:00 04:59:59 r Neurology 00 l Megan Morin 2019-08-15 2019-08-15 [id number] 10:00:00 23:59:59 Frank Ramiro Carroll 2019-08-15 2019-08-15 [id number] Memoria 10:00:00 10:00:00 00 l Mikel Results This patient has no known results.
[2022-11-18] MEDS ORDERED: EPINEPHRINE/PF 1 MG/ML AMP ONE (00:14)
[2022-11-18] MEDS ORDERED: METHYLPREDNISOLONE 125 MG INJ ONE (00:15)
[2022-11-18] MEDS ORDERED: NA CHLORIDE 0.9% 1,000 ML ONE (00:15)
[2022-11-18] MEDS ORDERED: FAMOTIDINE 20 MG/2 ML VIAL IV ONE (00:15)
[2022-11-18] MEDS ORDERED: DIPHENHYDRAMINE 50 MG/ML VIAL ONE (00:15)
[2022-11-18 00:40] LABS: Protime INR 1.03
[2022-11-18 00:54] LABS: Absolute Lymphocytes (CBC) 1.6 K/uL (0.7-4.9); Hematocrit 47.4 % (39.6-49.0); Lymphocytes % 24.9 % (15.3-44.8); MPV 7.3 fL (7.6-11.3); RBC Red Blood Cell Count 5.21 M/uL (4.33-5.43)
[2022-11-18 00:55] LABS: ALT/SGPT 26 U/L (16-61); AST/SGOT 19 U/L (15-37); Albumin 4.1 g/dL (3.4-5.0); Alkaline Phosphatase 128 U/L (45-117); BUN Blood Urea Nitrogen 17 mg/dL (7-18); Bicarbonate 27 mEq/L (21-32); Bilirubin Direct 0.2 mg/dL (0-0.2); Bilirubin Indirect, Calculated 1.1 mg/dL (0.2-0.8); Bilirubin Total 1.3 mg/dL (0.2-1.0); Glomerular Filtration Rate 66 ml/min (=/>90); Glucose Level 131 mg/dL (74-106); Potassium 3.8 mEq/L (3.5-5.1); Protein, Total 7.7 g/dL (6.4-8.2); Sodium Level 138 mEq/L (136-145); Troponin High Sensitivity 4.8 pg/mL (<58.9)
--- NOTE | 2022-11-18 01:54 | EDPHYS ---
Physician Documentation [facility] Name: Neymar Shah Age: 57 yrs Sex: Male : 1965 Arrival Date: 11/17/2022 Time: 23:37 Bed 6 Private MD: ED Physician Duong Marcano HPI: 11/18 02:02 This 57 yrs old Male presents to ER via Ambulatory with complaints of Wasp Sting, rt Confusion. 02:02 Patient presents to the ED following a wasp sting at about 1 PM. Patient has had rt worsening swelling since then. Patient's friend states that he has been somewhat confused, dizzy and has had a hoarse voice. Denies other acute complaints at this time. Symptoms are moderate in severity, no other aggravating alleviating factors.. Historical: - Allergies: 11/17 23:58 Iodinated Contrast Media - IV Dye; vc1 23:58 Morphine; vc1 - Home Meds: 23:58 None [Active]; vc1 - PMHx: 23:58 Hypertension; PTSD; vc1 - PSHx: 23:58 left knee; vc1 - Immunization history:: Client reports receiving the 2nd dose of the Covid vaccine. - Social history:: Smoking status: Patient denies any tobacco usage or history of. Patient/guardian denies using alcohol. ROS: 11/18 02:02 Constitutional: Negative for fever, chills, and weight loss, Eyes: Negative for injury, rt pain, redness, and discharge, Cardiovascular: Negative for chest pain, palpitations, and edema, Respiratory: Negative for shortness of breath, cough, wheezing, and pleuritic chest pain, Abdomen/GI: Negative for abdominal pain, nausea, vomiting, diarrhea, and constipation, Skin: Negative for injury, rash, and discoloration, Psych: Negative for depression, anxiety, suicide ideation, homicidal ideation, and hallucinations. Neuro: Positive for Confusion, dizziness. Exam: 02:02 Chest/axilla: Normal chest wall appearance and motion. Nontender with no deformity. rt No lesions are appreciated. Cardiovascular: Regular rate and rhythm with a normal S1 and S2. No gallops, murmurs, or rubs. Normal PMI, no JVD. No pulse deficits. Respiratory: Lungs have equal breath sounds bilaterally, clear to auscultation and percussion. No rales, rhonchi or wheezes noted. No increased work of breathing, no retractions or nasal flaring. Abdomen/GI: Soft, non-tender, with normal bowel sounds. No distension or tympany. No guarding or rebound. No evidence of tenderness throughout. Skin: Warm, dry with normal turgor. Normal color with no rashes, no lesions, and no evidence of cellulitis. MS/ Extremity: Pulses equal, no cyanosis. Neurovascular intact. Full, normal range of motion. Neuro: Awake and alert, GCS 15, oriented to person, place, time, and situation. Cranial nerves II-XII grossly intact. Motor strength 5/5 in all extremities. Sensory grossly intact. Cerebellar exam normal. Normal gait. Psych: Awake, alert, with orientation to person, place and time. Behavior, mood, and affect are within normal limits. 02:02 Head/face: Swelling above the left eyebrow extending to just below the eye. No other external evidence of trauma or swelling. 02:02 Eyes: Mild conjunctival injection of the left eye, extraocular muscles are intact. 02:02 ENT: Edema noted to the posterior pharynx. 02:02 ECG was reviewed by the Attending Physician. Vital Signs: 11/17 23:55 BP 176 / 103; Pulse 60; Resp 18; Temp 97.3; Pulse Ox 99% ; vc1 11/18 01:12 BP 127 / 79; Pulse 78; Resp 14 S; Pulse Ox 98% on R/A; as7 02:07 BP 117 / 87; Pulse 71; Resp 16 S; Pulse Ox 99% on R/A; ll3 11/17 23:55 Pt unsure of Ht and Wt vc1 MDM: 23:44 Patient medically screened. rt 11/18 02:02 Differential diagnosis: anaphylaxis, angioedema. Data reviewed: vital signs, nurses rt notes, lab test result(s). Consideration of Admission/Observation Escalation of care including admission/observation considered. Independent interpretation of the following test(s) in the Emergency Department CT Scan: My interpretation is No hemorrhage seen on my interpretation of the CT scan images. Counseling: I had a detailed discussion with the patient and/or guardian regarding: the historical points, exam findings, and any diagnostic results supporting the discharge/admit diagnosis, lab results, radiology results, the need for outpatient follow up. Response to treatment: the patient's symptoms have resolved after treatment. 11/17 23:52 Order name: Acetaminophen; Complete Time: 01:01 rt 11/17 23:52 Order name: Basic Metabolic Panel; Complete Time: 01: rt 11/17 23:52 Order name: CBC with Diff; Complete Time: 01:12 rt 11/17 23:52 Order name: ETOH Level; Complete Time: 01: rt 11/17 23:52 Order name: Hepatic Function; Complete Time: 01: rt 11/17 23:52 Order name: PT-INR; Complete Time: 01: rt 11/17 23:52 Order name: Ptt, Activated; Complete Time: 01: rt 11/17 23:52 Order name: Salicylate; Complete Time: 01: rt 11/17 23:52 Order name: Troponin High Sensitivity; Complete Time: 01: rt 11/17 23:52 Order name: CT Head Brain wo Cont rt 11/17 23:52 Order name: EKG; Complete Time: 23:53 rt 11/17 23:52 Order name: EKG - Nurse/Tech; Complete Time: 00:36 rt 11/17 23:52 Order name: IV Saline Lock; Complete Time: 00:21 rt 11/17 23:52 Order name: Labs collected and sent; Complete Time: 00:21 rt 11/17 23:52 Order name: Suicide Screening ([place]); Complete Time: 00:31 rt EC:02 Rate is 67 beats/min. Rhythm is regular, Normal Sinus Rhythm with No ectopy. QRS [place] rt is Normal. ME interval is normal. QRS interval is normal. QT interval is normal. No Q waves. T waves are Normal. No ST changes noted. Interpreted by me. Administered Medications: 00:20 Drug: EPINEPHrine IM 1:1,000 0.3 mg Route: IM; Site: right deltoid; ll3 02:06 Follow up: Response: No adverse reaction; Marked relief of symptoms ll3 00:20 Drug: diphenhydrAMINE IVP 50 mg Route: IVP; Site: right antecubital; ll3 02:06 Follow up: Response: No adverse reaction; Marked relief of symptoms ll3 00:20 Drug: Famotidine IVP 20 mg Route: IVP; Site: right antecubital; ll3 02:06 Follow up: Response: No adverse reaction; Marked relief of symptoms ll3 00:20 Drug: NS 0.9% IV 1000 ml Route: IV; Rate: 1 bolus; Site: right antecubital; ll3 02:05 Follow up: Response: No adverse reaction; IV Status: Completed infusion; IV Intake: ll3 1000ml 00:20 Drug: MethylPrednisoLONE IVP 125 mg Route: IVP; Site: right antecubital; ll3 02:05 Follow up: Response: No adverse reaction; Marked relief of symptoms ll3 00:37 Not Given (Physician Discretion): MethylPREDNISolone Sodium Succinate IM 125 mg IM once ll3 Disposition Summary: 11/18/22 01:53 Discharge Ordered Location: Home rt Problem: new rt Symptoms: have improved rt Condition: Stable rt Diagnosis - Anaphylaxis rt Followup: rt - With: Private Physician - When: 2 - 3 days - Reason: Discharge Instructions: - Discharge Summary Sheet rt - Anaphylactic Reaction, Adult rt Forms: - Medication Reconciliation Form rt - Thank You Letter rt - Antibiotic Education rt - Prescription Opioid Use rt Prescriptions: - epinephrine 0.3 mg/0.3 mL Injection Auto-Injector - administer 0.3 milliliter by INTRAMUSCULAR route once as a single dose; 2 Each; rt Refills: 0, Product Selection Permitted - Prednisone 20 mg Oral Tablet - take 2 tablets by ORAL route once daily for 5 days; 10 tablet; Refills: 0, rt Product Selection Permitted Signatures: Dispatcher [employer] Tracy Peterson, RN RN ll3 Ivelisse Haynes RN RN vc1 Duong Marcano MD MD rt
--- NOTE | 2022-11-18 01:54 | ER ---
Nurse's Notes [facility] Name: Neymar Shah Age: 57 yrs Sex: Male : 1965 Arrival Date: 11/17/2022 Time: 23:37 Bed 6 Private MD: Diagnosis: Anaphylaxis Presentation: 11/17 23:55 Chief complaint: Friend and/or Co-Worker states: "He got stung by a yellow jacket on vc1 the left side of his face and his left arm today between 11 and 12. He's been walking like his balance is off and confused.". Coronavirus screen: Vaccine status: Patient reports receiving the 2nd dose of the covid vaccine. Unsure of pourer Client denies travel out of the [place] in the last 14 days. At this time, the client does not indicate any symptoms associated with coronavirus-19. Ebola Screen: Patient negative for fever greater than or equal to 101.5 degrees Fahrenheit, and additional compatible Ebola Virus Disease symptoms Patient denies exposure to infectious person. Patient denies travel to an Ebola-affected area in the 21 days before illness onset. No symptoms or risks identified at this time. Initial Sepsis Screen: Does the patient meet any 2 criteria? No. Patient's initial sepsis screen is negative. Does the patient have a suspected source of infection? No. Patient's initial sepsis screen is negative. Risk Assessment: Do you want to hurt yourself or someone else? Patient reports no desire to harm self or others. Onset of symptoms was November 17, 2022 at 11:00. 23:55 Method Of Arrival: Ambulatory vc1 23:55 Acuity: BOBBI 3 vc1 Triage Assessment: 23:59 General: Appears in no apparent distress. uncomfortable, Behavior is cooperative. Pain: vc1 Complains of pain in forehead, left ear, left cheek, left eye and left islam Pain does not radiate. Unable to use pain scale. Does not appear to understand pain scale. EENT: swelling around the left eye. Neuro: Level of Consciousness is awake, obeys commands, confused, Oriented to person, place. Cardiovascular: No deficits noted. Respiratory: Airway is compromised Respiratory effort is even, unlabored, Respiratory pattern is regular, symmetrical. GI: No deficits noted. No signs and/or symptoms were reported involving the gastrointestinal system. : No deficits noted. No signs and/or symptoms were reported regarding the genitourinary system. Derm: Skin temperature is hot. Derm: swelling around left eye and left medial forearm. Historical: - Allergies: 23:58 Iodinated Contrast Media - IV Dye; vc1 23:58 Morphine; vc1 - Home Meds: 23:58 None [Active]; vc1 - PMHx: 23:58 Hypertension; PTSD; vc1 - PSHx: 23:58 left knee; vc1 - Immunization history:: Client reports receiving the 2nd dose of the Covid vaccine. - Social history:: Smoking status: Patient denies any tobacco usage or history of. Patient/guardian denies using alcohol. Screenin/14 00:02 [facility] ED Fall Risk Assessment (Adult) History of falling in the last 3 months, vc1 including since admission No falls in past 3 months (0 pts) Confusion or Disorientation Yes (5 pts) Intoxicated or Sedated No (0 pts) Impaired Gait No (0 pts) Mobility Assist Device Used No (0 pt) Altered Elimination No (0 pt) Score/Fall Risk Level 3 or more points = High Risk Oriented to surroundings, Maintained a safe environment, Educated pt \\T\\ family on fall prevention, incl call for assistance when getting out of bed, Hourly rounding (assess needs \\T\\ fall precautionary measures) done, Utilized family, sitter, or virtual vice president of communications as indicated. Abuse screen: Denies threats or abuse. Nutritional screening: No deficits noted. Tuberculosis screening: No symptoms or risk factors identified. Assessment: 01:00 General: Appears uncomfortable, Behavior is cooperative, anxious. Pain: Complains of ll3 pain in left islam and left eye and left cheek and left ear and forehead Pain does not radiate. Neuro: Level of Consciousness is awake, alert, obeys commands, Oriented to person, place, time, situation. Respiratory: Airway is patent Respiratory effort is even, unlabored, Respiratory pattern is regular, symmetrical. EENT: Reports difficulty swallowing. Derm: Skin is pink, warm \\T\\ dry. 02:08 Reassessment: Patient and/or family updated on plan of care and expected duration. Pain ll3 level reassessed. Patient is alert, oriented x 3, equal unlabored respirations, skin warm/dry/pink. Patient states feeling better. Patient states symptoms have improved. Vital Signs: 11/17 23:55 BP 176 / 103; Pulse 60; Resp 18; Temp 97.3; Pulse Ox 99% ; vc1 11/18 01:12 BP 127 / 79; Pulse 78; Resp 14 S; Pulse Ox 98% on R/A; as7 02:07 BP 117 / 87; Pulse 71; Resp 16 S; Pulse Ox 99% on R/A; ll3 11/17 23:55 Pt unsure of Ht and Wt vc1 ED Course: 23:41 Patient arrived in ED. ja2 23:41 Duong Marcano MD is Attending Physician. rt 23:58 Triage completed. vc1 11/18 00:02 Arm band placed on left wrist. vc1 00:03 Patient has correct armband on for positive identification. Bed in low position. Call vc1 light in reach. Pulse ox on. NIBP on. 00:33 CT Head Brain wo Cont In Process Unspecified. EDMS 02:06 No provider procedures requiring assistance completed. IV discontinued, intact, ll3 bleeding controlled, No redness/swelling at site. Pressure dressing applied. Administered Medications: 00:20 Drug: EPINEPHrine IM 1:1,000 0.3 mg Route: IM; Site: right deltoid; ll3 02:06 Follow up: Response: No adverse reaction; Marked relief of symptoms ll3 00:20 Drug: diphenhydrAMINE IVP 50 mg Route: IVP; Site: right antecubital; ll3 02:06 Follow up: Response: No adverse reaction; Marked relief of symptoms ll3 00:20 Drug: Famotidine IVP 20 mg Route: IVP; Site: right antecubital; ll3 02:06 Follow up: Response: No adverse reaction; Marked relief of symptoms ll3 00:20 Drug: NS 0.9% IV 1000 ml Route: IV; Rate: 1 bolus; Site: right antecubital; ll3 02:05 Follow up: Response: No adverse reaction; IV Status: Completed infusion; IV Intake: ll3 1000ml 00:20 Drug: MethylPrednisoLONE IVP 125 mg Route: IVP; Site: right antecubital; ll3 02:05 Follow up: Response: No adverse reaction; Marked relief of symptoms ll3 00:37 Not Given (Physician Discretion): MethylPREDNISolone Sodium Succinate IM 125 mg IM once ll3 Medication: 00:03 VIS not applicable for this client. vc1 Intake: 02:05 IV: 1000ml; Total: 1000ml. ll3 Outcome: 01:53 Discharge ordered by . rt 02:06 Discharged to home ambulatory, with significant other. ll3 02:06 Condition: stable 02:06 Discharge instructions given to patient, significant other, Instructed on discharge instructions, follow up and referral plans. medication usage, Demonstrated understanding of instructions, follow-up care, medications, Prescriptions given X 2. 02:08 Patient left the ED. ll3 Signatures: Dispatcher [employer] EDMS Pauline Cervantes Lynsea, RN RN ll3 Ivelisse Haynes RN RN vc1 Duong Marcano MD MD rt Senkyrik, Autumn as7
--- NOTE | 2022-11-18 12:56 | RAD REPORT ---
EXAM DESCRIPTION: CT - Head Brain Wo Cont - 11/18/2022 6:53 am CLINICAL HISTORY: The patient is 57 years old and is Male; ams TECHNIQUE: Axial computed tomography images of the head/brain without intravenous contrast. Sagitt al and coronal reformatted images were created and reviewed. This CT exam was performed using one o r more of the following dose reduction techniques: automated exposure control, adjustment of the mA and/or kV according to patient size, and/or use of iterative reconstruction technique. COMPARISON: No relevant prior studies available. FINDINGS: Brain: [id number]-ni-yhukctov nonspecific white matter changes likely related to chronic micro vascular ischemic disease. No hemorrhage. Ventricles: Unremarkable. No ventriculomegaly. Bones/joints: Unremarkable. No acute fracture. Soft tissues: Unremarkable. Sinuses: Unremarkable as visualized. Mastoid air cells: Unremarkable as visualized. No mastoid effusion. IMPRESSION: No acute intracranial abnormality. Electronically signed by: Lars Gutierrez MD 11/18/2022 12:45 AM CDT Due to temporary technical issues with the PACS/Fluency reporting system, reports are being signed by the in house radiologist without review as a courtesy to ensure prompt reporting. The interpreting r adiologist is fully responsible for the content of the report.
--- NOTE | 2022-11-19 13:57 | EKG ---
Test Date: 2022-11-18 Test Time: 00:34:54 Scada Operator: MEASUREMENT RESULTS: Intervals: Rate: 67 SD: 154 QRSD: 100 QT: 450 QTc: 475 [place]: P: 55 SD: 154 QRS: 66 T: 47 INTERPRETIVE STATEMENTS: Normal sinus rhythm with sinus arrhythmia Normal ECG Compared to ECG 05/22/2022 12:27:19 No significant changes Electronically Signed On 11-19-22 13:55:26 CDT by Ke Martinez
== END 2022-11-18 02:08 | disposition home or self-care (01) ==
LOC: ER 23:37
DX: T78.2XXA Anaphylactic shock, unspecified, initial encounter (principal); T63.461A Toxic effect of venom of wasps, accidental (unintentional), initial encounter; I10 Essential (primary) hypertension; Z88.5 Allergy status to narcotic agent; Z91.041 Radiographic dye allergy status
CPT/HCPCS: 96361; 93005; 85025; 80048; 36415; 85610; 80076; 85730; 84484; 70450; 96375; 96372; 96374; 99284; 80143; 80179; 82077; J0171; J1200; J2930; J7030

== ENCOUNTER 2024-01-15 18:02 | Emergency (ER) | payer OTHER, SELFPAY ==
[2024-01-15] MEDS ORDERED: ONDANSETRON 4 MG/2 ML VIAL ONE (19:51)
[2024-01-15] MEDS ORDERED: APIXABAN 5 MG TABLET ONE (19:52)
[2024-01-15] MEDS ORDERED: FENTANYL CITR 100 MCG/2 ML ONE (19:52)
[2024-01-15] MEDS ORDERED: NA CHLORIDE 0.9% 1,000 ML ONE (19:52)
[2024-01-15 20:28] LABS: PT Prothrombin Time 12.6 SECONDS (9.4-12.5); Protime INR 1.13
[2024-01-15 20:30] LABS: Absolute Eosinophils 0.2 K/uL (0-0.5); Absolute Lymphocytes (CBC) 1.4 K/uL (0.7-4.9); Absolute Monocytes 0.6 K/uL (0.1-1.3); Absolute Neutrophil 2.6 K/uL (1.8-8.0); Basophils % 0.7 % (0-1.3); Eosinophils % 4.3 % (0-4.4); Hematocrit 45.6 % (39.6-49.0); Hemoglobin 15.7 g/dL (13.6-17.9); Lymphocytes % 29.1 % (15.3-44.8); MCH 31.1 pg (27.0-35.0); MCHC 34.4 g/dL (32.0-36.0); MCV 90.4 fL (80-100); MPV 7.6 fL (7.6-11.3); Monocytes % 12.8 % (3.3-12.3); Neutrophils % 53.1 % (41.7-73.7); Nucleated Red Blood Cells % 0.2 % (0-0); Platelets 234 thou/uL (152-406); RBC Red Blood Cell Count 5.04 M/uL (4.33-5.43); Red Cell Distribution Width 13.1 % (12.1-15.2)
--- NOTE | 2024-01-15 21:02 | RAD REPORT ---
EXAM DESCRIPTION: US - UPPER EXTREMITY VENOUS UNILATE - 01/15/2024 8:36 pm CLINICAL HISTORY: left arm pain COMPARISON: None. FINDINGS: Left internal jugular vein, left subclavian vein, left axillary vein, left brachial vein, left basilic, left ulnar and left radial veins demonstrate phasic signal. The veins are compressible. Doppler demonstrates good flow. Left cephalic vein was not visualized Grayscale, color and spectral analysis performed on all vessels IMPRESSION: No sonographic evidence of thrombus involving the left upper extremity veins.
--- NOTE | 2024-01-15 21:08 | RAD REPORT ---
EXAM DESCRIPTION: USUpper Ext Artery Uni Bil01/15/2024 8:36 pm CLINICAL HISTORY: Left arm pain and numbness COMPARISON: None FINDINGS: The left common carotid, left subclavian, left subclavian, left axillary, left brachial, l eft basilic, left ulnar and left radial arteries demonstrate triphasic waveforms. No significant stenosis/occlusion Doppler demonstrates good flow. Grayscale, color and spectral analysis performed on all vessels IMPRESSION: No significant abnormality is displayed
[2024-01-15 21:18] LABS: Albumin 4.2 g/dL (3.4-5.0); Albumin/Globulin Ratio 1.2 (1.1-1.8); Anion Gap 9.3 mEq/L (5.0-15.0); Bilirubin Direct 0.2 mg/dL (0-0.2); Bilirubin Indirect, Calculated 0.9 mg/dL (0.2-0.8); Bilirubin Total 1.1 mg/dL (0.2-1.0); Globulin 3.4 g/dL (2.3-3.5); Magnesium 2.1 mg/dL (1.6-2.4); Potassium 3.3 mEq/L (3.5-5.1); Protein, Total 7.6 g/dL (6.4-8.2); Troponin High Sensitivity 4.2 pg/mL (<58.9)
--- NOTE | 2024-01-15 21:23 | RAD REPORT ---
EXAM DESCRIPTION: CT - Head C Spine Mpr Wo Con - 01/15/2024 8:46 pm CLINICAL HISTORY: Left arm numbness COMPARISON: [address] TECHNIQUE: Computed axial tomography of the head and cervical spine was obtained. Sagittal and coronal reconstruction was performed. All CT scans are performed using dose optimization technique as appropriate and may include automated exposure control or mA/KV adjustment according to patient size. FINDINGS: An intracranial bleed is not seen. The ventricles are normal in caliber. 15 millimeter low-density area white matter right frontal lobe unchanged from prior exam. This may re present an area of ischemia secondary to small vessel disease. Small area left frontal lobe white mat ter present. This also is chronic An extra-axial fluid collection is not noted. Fluid within the visualized sinuses and mastoids is not seen A cervical fracture is not visualized. No dislocation is noted. Calcification transverse ligament. Narrowing C5-6 disc. Disc bulge and osteophytes result in moderate narrowing of the right and mild moderate narrowing left neural foramina. Mild central spinal stenosi s present Small central disc herniation C6-7 suspected IMPRESSION: No acute intracranial abnormality is seen. A cervical fracture is not visualized. Spondylosis C5-6 results in moderate right and mild left foraminal stenosis. It also results in mild central spinal stenosis Small central disc herniation C6-7 suspected If the patient continues to have symptoms to suggest intracranial /spinal cord/spinal canal pathology then MRI would be recommended
--- NOTE | 2024-01-15 21:24 | RAD REPORT ---
EXAM DESCRIPTION: Ed Single View01/15/2024 8:57 pm CLINICAL HISTORY: Cough COMPARISON: 2019 FINDINGS: The lungs appear clear of acute infiltrate. The heart is normal size IMPRESSION: No acute abnormalities displayed
--- NOTE | 2024-01-15 22:26 | ER ---
Nurse's Notes [facility] Name: Neymar Shah Age: 58 yrs Sex: Male : 1965 Arrival Date: 01/15/2024 Time: 18:02 Bed 6 Private MD: Diagnosis: Dehydration;Hypokalemia Presentation: 01/14 18:45 Chief complaint: Patient states: Left arm numbness onset a few days ago. Pt states that cm10 it has gotten worse over the last few days. Coronavirus screen: Client denies travel out of the [place] in the last 14 days. At this time, the client does not indicate any symptoms associated with coronavirus-19. Ebola Screen: Patient denies travel to an Ebola-affected area in the 21 days before illness onset. No symptoms or risks identified at this time. Initial Sepsis Screen: Does the patient meet any 2 criteria? No. Patient's initial sepsis screen is negative. Does the patient have a suspected source of infection? No. Patient's initial sepsis screen is negative. Risk Assessment: Do you want to hurt yourself or someone else? Patient reports no desire to harm self or others. Onset of symptoms was January 15, 2024. 18:45 Method Of Arrival: Ambulatory cm10 18:45 Acuity: BOBBI 3 cm10 Triage Assessment: 18:47 General: Appears in no apparent distress. comfortable, Behavior is calm, cooperative. cm10 Neuro: No deficits noted. Level of Consciousness is awake, alert, obeys commands, Oriented to person, place, time, situation, Appropriate for age Reports numbness in left arm. Historical: - Allergies: 18:46 Iodinated Contrast Media - IV Dye; cm10 18:46 Morphine; cm10 - PMHx: 18:46 Hypertension; PTSD; Cerebrovascular accident; cm10 - PSHx: 18:46 left knee; cm10 - Immunization history:: Adult Immunizations. - Infectious Disease History:: Denies. - Social history:: Smoking status: Patient denies any tobacco usage or history of. - Family history:: not pertinent. Screenin:18 [facility] ED Fall Risk Assessment (Adult) History of falling in the last 3 months, bm8 including since admission No falls in past 3 months (0 pts) Confusion or Disorientation No (0 pts) Intoxicated or Sedated No (0 pts) Impaired Gait No (0 pts) Mobility Assist Device Used No (0 pt) Altered Elimination No (0 pt) Score/Fall Risk Level 0 - 2 = Low Risk Oriented to surroundings, Maintained a safe environment, Educated pt \T\ family on fall prevention, incl call for assistance when getting out of bed, Assessed \T\ reinforced patient's understanding of fall precautions, Hourly rounding (assess needs \T\ fall precautionary measures) done, Used ambulatory aids as needed (educated on \T\ assisted with). Abuse screen: Denies threats or abuse. Nutritional screening: No deficits noted. Tuberculosis screening: No symptoms or risk factors identified. Assessment: 20:18 Reassessment: Patient appears in no apparent distress at this time. Patient and/or bm8 family updated on plan of care and expected duration. Pain level reassessed. Patient is alert, oriented x 3, equal unlabored respirations, skin warm/dry/pink. General: Appears in no apparent distress. comfortable, Behavior is calm, cooperative, appropriate for age. Pain: Complains of pain in left arm Pain radiates to left hand Pain currently is 8 out of 10 on a pain scale. Quality of pain is described as sharp, shooting, Pain began 3-4 dys ago. Neuro: No deficits noted. Level of Consciousness is awake, alert, obeys commands, Oriented to person, place, time, situation, Appropriate for age. Cardiovascular: Heart tones S1 S2 present Capillary refill < 3 seconds Patient's skin is warm and dry. Rhythm is sinus rhythm. Respiratory: Airway is patent Respiratory effort is even, unlabored, Respiratory pattern is regular, symmetrical, Breath sounds are clear bilaterally. GI: No signs and/or symptoms were reported involving the gastrointestinal system. : No signs and/or symptoms were reported regarding the genitourinary system. EENT: No signs and/or symptoms were reported regarding the EENT system. Derm: No signs and/or symptoms reported regarding the dermatologic system. Musculoskeletal: Circulation, motion, and sensation intact. Capillary refill < 3 seconds, in bilateral fingers. toes. Range of motion: intact in all extremities, Reports pain in left hand and left arm Pain is 8 out of 10 on a pain scale. 22:23 Reassessment: Patient appears in no apparent distress at this time. Patient and/or bm8 family updated on plan of care and expected duration. Pain level reassessed. Patient is alert, oriented x 3, equal unlabored respirations, skin warm/dry/pink. Patient denies pain at this time. Patient states feeling better. Patient states symptoms have improved. 22:23 Reassessment: called pts cesar per pt request to ask for a ride home. . Vital Signs: 18:45 BP 152 / 92; Pulse 69; Resp 16; Temp 98.3; Pulse Ox 100% ; Weight 83.91 kg; Height 5 cm10 ft. 8 in. ; Pain 8/10; 20:18 BP 148 / 92; Pulse 74; Resp 11; Temp 98.3; Pulse Ox 100% ; Pain 8/10; bm8 22:23 BP 134 / 93; Pulse 65; Resp 20; Temp 98.3; Pulse Ox 100% ; Pain 0/10; bm8 18:45 Body Mass Index 28.13 (83.91 kg, 172.72 cm) cm10 18:45 Pain Scale: Adult cm10 20:18 Pain Scale: Adult bm8 22:23 Pain Scale: Adult bm8 [place] Coma Score: 20:18 Eye Response: spontaneous(4). Motor Response: obeys commands(6). Verbal Response: bm8 oriented(5). Total: 15. 22:23 Eye Response: spontaneous(4). Motor Response: obeys commands(6). Verbal Response: bm8 oriented(5). Total: 15. ED Course: 18:06 Patient arrived in ED. ra3 18:46 Triage completed. cm10 18:47 Arm band placed on Patient placed in waiting room. cm10 19:27 Curry King MD is Attending Physician. nilson 19:48 Stephen Montes De Oca, RN is Primary Nurse. bm8 20:18 Patient has correct armband on for positive identification. Bed in low position. Call bm8 light in reach. Side rails up X 1. Adult w/ patient. Client placed on continuous cardiac and pulse oximetry monitoring. NIBP monitoring applied. air sampling and monitoring on. Pulse ox on. NIBP on. Door closed. Warm blanket given. Verbal reassurance given. 20:18 No provider procedures requiring assistance completed. Initial lab(s) drawn, by ky, la nena sent to lab. EKG done, by ED staff, reviewed by Curry King MD. Inserted saline lock: 18 gauge in left forearm, using aseptic technique. Blood collected. Flushed with 10 mL NS. 20:37 Upper Ext Artery Uni Armando In Process Unspecified. EDMS 20:37 UPPER EXTREMITY VENOUS UNILATE In Process Unspecified. EDMS 20:48 CT Head C Spine In Process Unspecified. EDMS 20:59 XRAY Chest (1 view) In Process Unspecified. EDMS 22:23 Provided Education on: post er care. bm8 22:23 IV discontinued, intact, bleeding controlled, No redness/swelling at site. Pressure bm8 dressing applied. Administered Medications: 20:17 Drug: Ondansetron IVP 4 mg IVP once; over 2 minutes Route: IVP; Site: left forearm; bm8 22:26 Follow up: Response: No adverse reaction bm8 20:17 Drug: Eliquis PO 10 mg PO once Route: PO; bm8 22:26 Follow up: Response: No adverse reaction bm8 20:18 Drug: NS 0.9% IV 1000 ml IV at 1 bolus Per protocol; 1000 mL bolus Route: IV; Rate: 1 bm8 bolus; Site: left forearm; 22:27 Follow up: Response: No adverse reaction; IV Status: Completed infusion; IV Intake: bm8 1000ml 20:18 Drug: fentaNYL (PF) IVP 50 mcg IVP once Route: IVP; Site: left forearm; bm8 22:27 Follow up: Response: No adverse reaction bm8 Medication: 20:18 VIS not applicable for this client. bm8 Intake: 22:27 IV: 1000ml; Total: 1000ml. bm8 Outcome: 22:23 Discharged to home ambulatory, bm8 22:23 Condition: stable 22:23 Discharge instructions given to patient, Instructed on discharge instructions, follow up and referral plans. medication usage, safety practices, Demonstrated understanding of instructions, follow-up care, medications, 22:25 Discharge ordered by . bo1 22:34 Patient left the ED. bm8 Signatures: Dispatcher [employer] Curry Coreas MD MD cha Martinez, Clarissa, RN RN cm10 Vianey Davila ra3 Aftab Yu MD MD bo1 Stephen Montes De Oca, RN RN bm8 Corrections: (The following items were deleted from the chart) 22:27 22:23 Discharge instructions given to patient, Instructed on discharge instructions, bm8 follow up and referral plans. medication usage, safety practices, Demonstrated understanding of instructions, follow-up care, medications, Prescriptions given X 2, bm8
--- NOTE | 2024-01-15 22:26 | EDPHYS ---
Physician Documentation [facility] Name: Neymar Shah Age: 58 yrs Sex: Male : 1965 Arrival Date: 01/15/2024 Time: 18:02 Bed 6 Private MD: ED Physician Curry King HPI: 01/14 19:38 This 58 yrs old Male presents to ER via Ambulatory with complaints of nilson Numbness Of Arm - Left. 19:38 The patient or guardian complains of decreased range of motion, pain, that is chronic. nilson The complaints affect the left bicep, dorsal aspect of left forearm, left hand, left tricep and palmar aspect of left forearm. Context: The problem was sustained at an unknown location, resulted from unknown cause. Onset: The symptoms/episode began/occurred 14 day(s) ago. Treatment prior to arrival includes: no previous treatment. Modifying factors: The symptoms are alleviated by nothing. the symptoms are aggravated by nothing. Associated signs and symptoms: The patient has no apparent associated signs or symptoms. Severity of symptoms: At their worst the symptoms were moderate, in the emergency department the symptoms are unchanged. The patient has experienced similar episodes in the past, multiple times. Historical: - Allergies: 18:46 Iodinated Contrast Media - IV Dye; cm10 18:46 Morphine; cm10 - PMHx: 18:46 Hypertension; PTSD; Cerebrovascular accident; cm10 - PSHx: 18:46 left knee; cm10 - Immunization history:: Adult Immunizations. - Infectious Disease History:: Denies. - Social history:: Smoking status: Patient denies any tobacco usage or history of. - Family history:: not pertinent. ROS: 19:38 Constitutional: Negative for fever, chills, and weight loss, Eyes: Negative for injury, nilson pain, redness, and discharge, Neck: Negative for injury, pain, and swelling, Cardiovascular: Negative for chest pain, palpitations, and edema, Respiratory: Negative for shortness of breath, cough, wheezing, and pleuritic chest pain, Abdomen/GI: Negative for abdominal pain, nausea, vomiting, diarrhea, and constipation, Back: Negative for injury and pain, : Negative for injury, bleeding, discharge, and swelling, MS/Extremity: Negative for injury and deformity, Skin: Negative for injury, rash, and discoloration, Neuro: Negative for headache, weakness, numbness, tingling, and seizure, 19:38 ENT: Negative for injury, pain, and discharge, 19:38 ENT: Positive for Exam: 19:38 Constitutional: This is a well developed, well nourished patient who is awake, alert, nilson and in no acute distress. Head/Face: Normocephalic, atraumatic. Eyes: Pupils equal round and reactive to light, extra-ocular motions intact. Lids and lashes normal. Conjunctiva and sclera are non-icteric and not injected. Cornea within normal limits. Periorbital areas with no swelling, redness, or edema. ENT: Nares patent. No nasal discharge, no septal abnormalities noted. Tympanic membranes are normal and external auditory canals are clear. Oropharynx with no redness, swelling, or masses, exudates, or evidence of obstruction, uvula midline. Mucous membranes moist. Neck: Trachea midline, no thyromegaly or masses palpated, and no cervical lymphadenopathy. Supple, full range of motion without nuchal rigidity, or vertebral point tenderness. No Meningismus. Chest/axilla: Normal chest wall appearance and motion. Nontender with no deformity. No lesions are appreciated. Cardiovascular: Regular rate and rhythm with a normal S1 and S2. No gallops, murmurs, or rubs. Normal PMI, no JVD. No pulse deficits. Respiratory: Lungs have equal breath sounds bilaterally, clear to auscultation and percussion. No rales, rhonchi or wheezes noted. No increased work of breathing, no retractions or nasal flaring. Abdomen/GI: Soft, non-tender, with normal bowel sounds. No distension or tympany. No guarding or rebound. No evidence of tenderness throughout. Back: No spinal tenderness. No costovertebral tenderness. Full range of motion. Male : Normal genitalia with no discharge or lesions. Skin: Warm, dry with normal turgor. Normal color with no rashes, no lesions, and no evidence of cellulitis. Neuro: Awake and alert, GCS 15, oriented to person, place, time, and situation. Cranial nerves II-XII grossly intact. Motor strength 5/5 in all extremities. Sensory grossly intact. Cerebellar exam normal. Normal gait. Psych: Awake, alert, with orientation to person, place and time. Behavior, mood, and affect are within normal limits. 19:38 Musculoskeletal/extremity: ROM: limited active range of motion, limited passive range of motion, Circulation is intact in all extremities. numbness, Compartment Syndrome exam of affected extremity: is normal. DVT Exam: no swelling, negative Homans' sign noted on exam, no appreciated bluish discoloration, no erythema, no increased warmth, pain, tenderness, 20:08 ECG was reviewed by the Attending Physician. bo1 Vital Signs: 18:45 BP 152 / 92; Pulse 69; Resp 16; Temp 98.3; Pulse Ox 100% ; Weight 83.91 kg; Height 5 cm10 ft. 8 in. ; Pain 8/10; 20:18 BP 148 / 92; Pulse 74; Resp 11; Temp 98.3; Pulse Ox 100% ; Pain 8/10; bm8 22:23 BP 134 / 93; Pulse 65; Resp 20; Temp 98.3; Pulse Ox 100% ; Pain 0/10; bm8 18:45 Body Mass Index 28.13 (83.91 kg, 172.72 cm) cm10 18:45 Pain Scale: Adult cm10 20:18 Pain Scale: Adult bm8 22:23 Pain Scale: Adult bm8 Henning Coma Score: 20:18 Eye Response: spontaneous(4). Motor Response: obeys commands(6). Verbal Response: bm8 oriented(5). Total: 15. 22:23 Eye Response: spontaneous(4). Motor Response: obeys commands(6). Verbal Response: bm8 oriented(5). Total: 15. MDM: 19:27 Patient medically screened. [facility] 19:41 Differential diagnosis: contusion, abrasion, tendonitis. Data reviewed: vital signs, [facility] nurses notes, lab test result(s), EKG, radiologic studies, CT scan, plain films. Consideration of Admission/Observation Escalation of care including admission/observation considered. I considered the following discharge prescriptions or medication management in the emergency department Medications were administered in the Emergency Department. See MAR. Independent interpretation of the following test(s) in the Emergency Department EKG: See my EKG interpretation above Radiology Department Ultrasound: My interpretation is ARTERIAL AND VENOUS DOPPLERS. Test considered but Not performed: MRI: NO MRI BRAIN OR C SPINE. Historians other than the Patient: PT WELL INFORMED. Care significantly affected by the following chronic conditions: Hypertension, CVA, PTSD. 22:22 Data reviewed: lab test result(s), CBC, electrolytes, , radiologic studies, CT scan, bo1 doppler. 22:22 ED course: Pt. ED course: Pt's vitals are normal. Pt just feels groggy o/w w/o new sxs. bo1 Pt would like his to pick him up.. 01/14 19:37 Order name: Basic Metabolic Panel; Complete Time: 22:12 [facility] 01/14 19:37 Order name: CBC with Diff; Complete Time: 20:52 [facility] 01/14 19:37 Order name: LFT's; Complete Time: 22:12 [facility] 01/14 19:37 Order name: Magnesium; Complete Time: 22:12 [facility] 01/14 19:37 Order name: NT PRO-BNP; Complete Time: 22:12 [facility] 01/14 19:37 Order name: PT-INR; Complete Time: 20:52 [facility] 01/14 19:37 Order name: Troponin HS; Complete Time: 22:12 [facility] 01/14 19:37 Order name: XRAY Chest (1 view); Complete Time: 22:12 [facility] 01/14 19:37 Order name: CT Head C Spine; Complete Time: 22:12 [facility] 01/14 19:41 Order name: Upper Ext Artery Uni Armando; Complete Time: 22:12 EDMS 01/14 19:41 Order name: UPPER EXTREMITY VENOUS UNILATE; Complete Time: 22:12 EDMS 10 19:37 Order name: EKG; Complete Time: 19:38 [facility] 01/14 19:37 Order name: Cardiac monitoring; Complete Time: 20:18 [facility] 01/14 19:37 Order name: EKG - Nurse/Tech; Complete Time: 20:18 [facility] 01/14 19:37 Order name: IV Saline Lock; Complete Time: 20:18 [facility] 01/14 19:37 Order name: Labs collected and sent; Complete Time: 20:18 [facility] 01/14 19:37 Order name: O2 Per Protocol; Complete Time: 20:18 [facility] 01/14 19:37 Order name: O2 Sat Monitoring; Complete Time: 20:18 [facility] EC:08 Rate is 66 beats/min. Rhythm is regular. QRS [place] is Normal. [place] interval is normal. QRS bo1 interval is normal. QT interval is normal. No Q waves. T waves are Normal. No ST changes noted. Clinical impression: Normal ECG. Interpreted by me. Reviewed by me. Administered Medications: 20:17 Drug: Ondansetron IVP 4 mg IVP once; over 2 minutes Route: IVP; Site: left forearm; bm8 22:26 Follow up: Response: No adverse reaction bm8 20:17 Drug: Eliquis PO 10 mg PO once Route: PO; bm8 22:26 Follow up: Response: No adverse reaction bm8 20:18 Drug: NS 0.9% IV 1000 ml IV at 1 bolus Per protocol; 1000 mL bolus Route: IV; Rate: 1 bm8 bolus; Site: left forearm; 22:27 Follow up: Response: No adverse reaction; IV Status: Completed infusion; IV Intake: bm8 1000ml 20:18 Drug: fentaNYL (PF) IVP 50 mcg IVP once Route: IVP; Site: left forearm; bm8 22:27 Follow up: Response: No adverse reaction bm8 Disposition Summary: 01/15/24 22:25 Discharge Ordered Notes: Location: Home bo1 Problem: new bo1 Symptoms: are unchanged bo1 Condition: Stable bo1 Diagnosis - Dehydration bo1 - Hypokalemia bo1 Followup: bo1 - With: Private Physician - When: 1 - 2 days - Reason: Continuance of care Discharge Instructions: - Discharge Summary Sheet bo1 - Dehydration, Elderly bo1 - Dehydration, Adult, [id number] bo1 - Hypokalemia bo1 Forms: - Medication Reconciliation Form bo1 - Antibiotic Education bo1 - Prescription Opioid Use bo1 - Patient Portal Instructions bo1 - Leadership Thank You Letter bo1 Signatures: Dispatcher [employer] EDMS Curry King MD MD cha Martinez, Clarissa, RN RN cm10 Aftab Yu MD MD bo1 Stephen Montes De Oca, RN RN bm8 Corrections: (The following items were deleted from the chart) 19:38 19:38 Head C Spine MPR Wo Con+CT.RAD.BRZ ordered. EDMS EDMS 19:38 19:38 Extremity Venous Uni Ltd+US.RAD.BRZ ordered. EDMS EDMS 19:38 19:38 Lower Extremity Artery Uni Ltd+US.RAD.BRZ ordered. EDMS EDMS
[2024-01-15 22:40] VITALS: TEMP 98.3; O2SAT 100
[2024-01-15 22:43] VITALS: BP 134/93
--- NOTE | 2024-01-17 13:49 | EKG ---
Test Date: 2024-01-15 Test Time: 20:04:39 Flight Service Specialist: JESSE MEASUREMENT RESULTS: Intervals: Rate: 66 OK: 176 QRSD: 98 QT: 426 QTc: 446 [place]: P: 55 OK: 176 QRS: 70 T: 58 INTERPRETIVE STATEMENTS: Normal sinus rhythm Normal ECG Compared to ECG 11/18/2022 00:34:54 Sinus arrhythmia no longer present Electronically Signed On 01-17-24 13:45:13 CDT by Ke Martinez
== END 2024-01-15 22:34 | disposition home or self-care (01) ==
LOC: ER 18:02
DX: E86.0 Dehydration (principal); E87.6 Hypokalemia
CPT/HCPCS: 36415; 70450; 71045; 72125; 80048; 80076; 83735; 83880; 84484; 85025; 85610; 93005; 93931; 93971; 96361; 96374; 96375; 99285; J2405; J3010; J7030

== ENCOUNTER 2024-05-10 09:27 | Emergency (ER) | payer OTHER, SELFPAY ==
[2024-05-10] MEDS ORDERED: MORPHINE 4 MG/ML SYR ONE (09:56)
[2024-05-10] MEDS ORDERED: KETOROLAC 30 MG/ML INJ ONE (09:56)
[2024-05-10] MEDS ORDERED: ONDANSETRON 4 MG/2 ML VIAL ONE (09:56)
[2024-05-10] MEDS ORDERED: NA CHLORIDE 0.9% 1,000 ML ONE (09:57)
[2024-05-10] MEDS ORDERED: DIAZEPAM 5 MG TABLET ONE (09:57)
[2024-05-10 10:05] LABS: Absolute Eosinophils 0.2 K/uL (0-0.5); Absolute Lymphocytes (CBC) 1.3 K/uL (0.7-4.9); Absolute Monocytes 0.5 K/uL (0.1-1.3); Absolute Neutrophil 2.8 K/uL (1.8-8.0); Basophils % 0.7 % (0-1.3); Hematocrit 43.8 % (39.6-49.0); Lymphocytes % 26.5 % (15.3-44.8); MCH 30.9 pg (27.0-35.0); MCHC 34.3 g/dL (32.0-36.0); MCV 90.1 fL (80-100); MPV 7.7 fL (7.6-11.3); Monocytes % 10.4 % (3.3-12.3); Neutrophils % 57.4 % (41.7-73.7); Nucleated Red Blood Cells % 0.1 % (0-0); Platelets 210 thou/uL (152-406); RBC Red Blood Cell Count 4.86 M/uL (4.33-5.43); Red Cell Distribution Width 12.8 % (12.1-15.2)
--- NOTE | 2024-05-10 10:22 | RAD REPORT ---
EXAM: CT CHEST, ABDOMEN AND PELVIS WITHOUT CONTRAST CLINICAL INDICATION: Male, 58 years old. [facility] [place] MAIN PAIN TECHNIQUE: CT chest, abdomen and pelvis was performed, without IV contrast, as per department protoco l. Axial, sagittal and coronal reconstructions were obtained. One or more of the following dose reduction techniques were used: Automated exposure control, adjustment of the mA and/or kV according to the patient size, and/or iterative reconstruction. Unless otherwise specified, incidental findings do not require dedicated imaging follow-up. COMPARISON: 05/22/2022 FINDINGS: The lack of intravenous contrast limits the sensitivity of this exam for evaluation of solid visceral organs, vascular structures, and retroperitoneum. Chest: LOWER NECK/CHEST WALL: Visualized thyroid gland and soft tissues are normal. LUNGS AND AIRWAYS: Airways are clear. No evidence of airspace or interstitial process. No suspicious nodules. Linear thickening along the minor fissure, may relate to scarring or mildly prominent lymph nodes. PLEURA: No pleural effusion. No pneumothorax. Hemidiaphragms are normally positioned. MEDIASTINUM AND LYMPH NODES: No mediastinal mass or fluid collection. Normal size mediastinal, hilar, and axillary lymph nodes. THORACIC AORTA: Normal caliber and configuration. PULMONARY ARTERIES: Normal caliber. HEART: Unremarkable. Abdomen/Pelvis LIVER: Normal in size and contour. No focal lesion. GALLBLADDER/BILE DUCTS: Status post cholecystectomy. No biliary ductal dilatation. PANCREAS: No mass, ductal dilation, or brianne-pancreatic fluid. SPLEEN: Normal size. No focal lesion. ADRENALS: Normal; no mass. KIDNEYS AND URETERS: Normal size and contour. No hydronephrosis. GASTROINTESTINAL TRACT: Stomach is non-dilated. Small bowel has normal course and caliber. No colonic wall thickening or pericolonic inflammatory changes. PERITONEUM: No free fluid. LYMPH NODES: No lymphadenopathy. ABDOMINAL AORTA AND OTHER VESSELS: Normal caliber aorta and IVC. URINARY BLADDER: Normal contour. REPRODUCTIVE ORGANS: No pathologic process. MUSCULOSKELETAL: No acute or suspicious osseous abnormality. ADDITIONAL FINDINGS: Findings suggestive of prior right inguinal hernia repair IMPRESSION: No acute or significant abnormalities in the chest, abdomen, or pelvis. Incidental findings as above.
[2024-05-10 10:26] LABS: Albumin/Globulin Ratio 1.2 (1.1-1.8); Anion Gap 11.9 mEq/L (5.0-15.0); Bilirubin Direct 0.3 mg/dL (0-0.2); Bilirubin Indirect, Calculated 1.2 mg/dL (0.2-0.8); Bilirubin Total 1.5 mg/dL (0.2-1.0); Globulin 3.3 g/dL (2.3-3.5); Potassium 3.9 mEq/L (3.5-5.1); Protein, Total 7.3 g/dL (6.4-8.2)
--- NOTE | 2024-05-10 10:26 | RAD REPORT ---
EXAM: CT brain without contrast HISTORY: pain COMPARISON: 01/15/2024 TECHNIQUE: Multiple contiguous axial images were obtained and a CT of the brain without contrast. Sag ittal and coronal reformats were performed. FINDINGS: No evidence of hydrocephalus, intracranial hemorrhage, or extra-axial fluid collection. Moderate brain atrophy with moderate periventricular and deep white matter chronic microvascular isc hemic changes, stable. The calvarium is intact. The visualized paranasal sinuses and mastoid air cells are essentially clear . IMPRESSION: No evidence of acute intracranial abnormality. EXAM: CT of the cervical spine without contrast HISTORY: pain COMPARISON: None TECHNIQUE: Multiple contiguous axial images were obtained in a CT of the cervical spine without contr ast. Sagittal and coronal reformats were performed. FINDINGS: The vertebral bodies demonstrate normal height and alignment. No evidence of acute fracture or subluxation.. No degenerative changes are present. No prevertebral soft tissue swelling is seen. The posterior facets are well aligned. Normal alignment of the skull base with the cervical spine is seen. The lung apices are unremarkable. IMPRESSION: No evidence of acute osseous abnormality of the cervical spine.
--- NOTE | 2024-05-10 10:43 | RAD REPORT ---
EXAMINATION: ONE VIEW CHEST XR CLINICAL INDICATION: Male, 58 years old.,PAIN TECHNIQUE: Frontal chest projection is submitted. Examination is limited by patient positioning and t echnique. COMPARISON: 01/15/2024 FINDINGS: The lungs are well inflated and clear. No pneumothorax or sizable effusion. The heart is normal in s ize. Mediastinal contours are unremarkable. IMPRESSION: No acute intrathoracic abnormalities.
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
--- NOTE | 2024-05-10 11:09 | ER ---
Nurse's Notes [facility] Name: Neymar Shah Age: 58 yrs Sex: Male : 1965 Arrival Date: 05/10/2024 Time: 09:27 Bed 8 Private MD: Diagnosis: Contusion of back wall of thorax-lumbar;Strain of muscle, fascia and tendon of abdomen, lower back and pelvis Presentation: 05/10 09:48 Chief complaint: Patient states: he was working on cutting tree branches yesterday, ap3 when it swung down abnormally and hit him in the left lower back knocking him off of the ladder. patient denies any LOC. patient states he was able to get up and continue working, but the pain continued to increase throughout the day and into to the night. Coronavirus screen: At this time, the client does not indicate any symptoms associated with coronavirus-19. Ebola Screen: No symptoms or risks identified at this time. Initial Sepsis Screen: Does the patient meet any 2 criteria? No. Patient's initial sepsis screen is negative. Does the patient have a suspected source of infection? No. Patient's initial sepsis screen is negative. Risk Assessment: Do you want to hurt yourself or someone else? Patient reports no desire to harm self or others. Onset of symptoms was May 09, 2024. Care prior to arrival: Medication(s) given: zofran 4 mg, 100mcg fentanyl, 15mg Toradol IV initiated. 18 GA, in the right forearm. 09:48 Method Of Arrival: EMS: [facility] ap3 09:48 Acuity: BOBBI 2 ap3 Triage Assessment: 09:52 General: Appears uncomfortable, Behavior is calm, cooperative, appropriate for age. ap3 Pain: Complains of pain in low back area Pain currently is 8 out of 10 on a pain scale. Neuro: Level of Consciousness is awake, alert, obeys commands, Oriented to person, place, time, situation, Appropriate for age Speech is normal. Cardiovascular: Patient's skin is warm and dry. Respiratory: Airway is patent Respiratory effort is even, unlabored, Respiratory pattern is regular, symmetrical. GI: No deficits noted. No signs and/or symptoms were reported involving the gastrointestinal system. : No deficits noted. No signs and/or symptoms were reported regarding the genitourinary system. Musculoskeletal: Range of motion: intact in left ankle and right ankle. Historical: - Allergies: 09:52 Iodinated Contrast Media - IV Dye; ap3 - PMHx: 09:52 Cerebrovascular accident; Hypertension; PTSD; ap3 - PSHx: 09:52 left knee; ap3 - Immunization history:: Client reports receiving the 2nd dose of the Covid vaccine, Last tetanus immunization: unknown. - Infectious Disease History:: Denies. - Social history:: Smoking status: Patient denies any tobacco usage or history of. - Family history:: not pertinent. Screenin:53 Abuse screen: Denies threats or abuse. Nutritional screening: No deficits noted. ap3 Tuberculosis screening: No symptoms or risk factors identified. 11:21 [facility] ED Fall Risk Assessment (Adult) History of falling in the last 3 months, ko1 including since admission No falls in past 3 months (0 pts) Confusion or Disorientation No (0 pts) Intoxicated or Sedated No (0 pts) Impaired Gait No (0 pts) Mobility Assist Device Used No (0 pt) Altered Elimination No (0 pt) Score/Fall Risk Level 0 - 2 = Low Risk Oriented to surroundings, Maintained a safe environment, Educated pt \T\ family on fall prevention, incl call for assistance when getting out of bed, Assessed \T\ reinforced patient's understanding of fall precautions, Hourly rounding (assess needs \T\ fall precautionary measures) done. Vital Signs: 09:48 BP 147 / 98; Pulse 56; Resp 19; Temp 98.8; Pulse Ox 99% on R/A; Pain 8/10; ap3 11:21 BP 138 / 84; Pulse 58; Resp 15; Pulse Ox 99% ; ko1 09:48 Pain Scale: Adult ap3 ED Course: 09:30 Patient arrived in ED. ko1 09:31 Curry King MD is Attending Physician. nilson 09:52 Triage completed. ap3 09:53 Arm band placed on right wrist. ap3 09:54 Patient has correct armband on for positive identification. Bed in low position. Call ap3 light in reach. Side rails up X2. Provided Education on: call light education. Client placed on continuous cardiac and pulse oximetry monitoring. NIBP monitoring applied. property assessment monitor on. Pulse ox on. NIBP on. 09:58 Lipase Sent. em1 09:58 LFT's Sent. em1 09:58 Basic Metabolic Panel Sent. em1 09:58 CBC with Diff Sent. em1 09:58 Type And Screen Sent. em1 09:59 Initial lab(s) drawn, by me, sent to lab. T\T\S collected, blood band applied to patient. em1 10:07 Luli Brito, RN is Primary Nurse. ap3 10:11 Head C Spine Mpr Wo Con In Process Unspecified. EDMS 10:11 Chest Abd Pelvis Wo Con In Process Unspecified. EDMS 10:14 XRAY Chest (1 view) In Process Unspecified. EDMS 11:18 Urinalysis w/ reflexes Sent. ko1 11:21 No provider procedures requiring assistance completed. IV discontinued, intact, ko1 bleeding controlled, No redness/swelling at site. Pressure dressing applied. Administered Medications: 10:23 Drug: NS 0.9% IV 1000 ml IV at 1000 ml once; to be given as a bolus over 60 minutes ko1 Route: IV; Rate: 1000 ml; Site: right forearm; 11:24 Follow up: Response: No adverse reaction; IV Status: Completed infusion; IV Intake: ko1 1000ml 10:23 Drug: Ketorolac IVP 30 mg IVP once Route: IVP; Site: right forearm; ko1 10:38 Follow up: Response: No adverse reaction ko1 10:23 Drug: Ondansetron IVP 4 mg IVP once; over 2 minutes Route: IVP; Site: right forearm; ko1 10:38 Follow up: Response: No adverse reaction ko1 10:23 Drug: Diazepam PO 10 mg PO once Route: PO; ko1 10:52 Follow up: Response: No adverse reaction ko1 11:03 Drug: morphine IVP or IV 4 mg IVP once over 4 mins Route: IVP; Infused Over: 4 mins; ko1 Site: right forearm; 11:18 Follow up: Response: No adverse reaction; Pain is decreased ko1 Medication: 11:21 VIS not applicable for this client. ko1 Intake: 11:24 IV: 1000ml; Total: 1000ml. ko1 Outcome: 11:08 Discharge ordered by . nilson 11:32 Discharged to home ambulatory, with family, ko1 11:32 Condition: stable 11:32 Discharge instructions given to patient, Instructed on discharge instructions, follow up and referral plans. medication usage, Demonstrated understanding of instructions, follow-up care, medications, Prescriptions given X 3, 11:33 Patient left the ED. ko1 Signatures: Dispatcher [employer] EDCurry Mann MD MD cha Martinez, Eric em1 Luli Brito RN RN ap3 Tanya Roblero RN RN ko1 Corrections: (The following items were deleted from the chart) 10:36 09:52 Allergies: Morphine; ap3 ko1
[2024-05-10 11:21] LABS: Specific Gravity 1.016 (1.005-1.030); Urine Bilirubin NEGATIVE (Negative); Urine Blood Negative (Negative); Urine Clarity Clear (Clear); Urine Color Light-Yellow (Yellow); Urine Glucose NEGATIVE (Negative); Urine Ketones NEGATIVE (Negative); Urine Microscopic Reflex YN NO UMIC; Urine Nitrite NEGATIVE (Negative); Urine Protein NEGATIVE (Negative); Urine Urobilinogen 1+ (Normal); Urine pH 8.5 (5.0-7.0)
[2024-05-10 16:10] VITALS: TEMP 98.8; O2SAT 99
[2024-05-10 16:11] VITALS: BP 138/84
== END 2024-05-10 11:33 | disposition home or self-care (01) ==
LOC: ER 09:27
DX: S39.012A Strain of muscle, fascia and tendon of lower back, initial encounter (principal); S39.011A Strain of muscle, fascia and tendon of abdomen, initial encounter; S39.013A Strain of muscle, fascia and tendon of pelvis, initial encounter; S30.0XXA Contusion of lower back and pelvis, initial encounter; W22.8XXA Striking against or struck by other objects, initial encounter; I10 Essential (primary) hypertension; Z86.73 Personal history of transient ischemic attack (TIA), and cerebral infarction without residual deficits
CPT/HCPCS: 96361; 85025; 80048; 36415; 86900; 86850; 86901; 80076; 81003; 83690; 70450; 71250; 72125; 74176; 71045; 96375; 96374; 99285; J2405; J7030